=== PATIENT | male | born 1980 | race Hispanic/Latino ===

== ENCOUNTER 2020-02-15 04:20 | Inpatient (IN) | payer OTHER ==
[~2020-02-15] VITALS: Ht 162.6 cm; Wt 96.6 kg
[2020-02-15] MEDS ORDERED: ACETAMINOPHEN 325 MG TAB PO ONE ×2 (04:45→06:45)
[2020-02-15] MEDS ORDERED: CEFEPIME 2 GM/NS 0.9% 100 ML 100 ML IV ONE (04:45)
[2020-02-15] MEDS ORDERED: IBUPROFEN 600 MG TAB PO STA (05:05)
--- NOTE | 2020-02-15 05:13 | Emergency Department Note ---
History of Present Illnes History of Present Illness Chief Complaint: COVID PUI History of Present Illness This is a 40 year old male PRESENTS TO ED WITH FEVER, SOB AND DRY COUGH ONSET YESTERDAY; PT WAS SEEN AT [facility] YESTERDAY AND RX'D ANTIBIOTICS, DENIES BEING TESTED FOR COVID; PT REPORTS SOB WHILE LAYING FLAT; PT DENIES CP OR SOB AT THIS TIME; PT TACHYPNEIC WHEN SPEAKING; . Historian: Patient Arrival Mode: Car Onset (how long ago): day(s) (1) Location: chest Quality: sob, occasional pain withi inspiration Radiation: Reports non-radiation Severity: mild Onset quality: sudden Duration (how long): day(s) (1) Progression: worsening Chronicity: new Context: Reports recent illness Relieving factors: none Exacerbating factors: none Associated symptoms: Reports chest pain (with inspiration occasionally), Reports cough (non productive) Treatments prior to arrival: antipyretic (tylenol) Past Medical/Family History Physician Review I have reviewed the patient's past medical and family history. Any updates have been documented here. Past Medical History Recent Fever: Yes Clinical Suspicion of Infectio: Yes New/Unexplained Change in Ment: No Past Medical History: None Other Surgery: RT MINISCUS REPAIR Social History Smoking Cessation: Never Smoker Alcohol Use: None Any Illegal Drug Use: No Other Last Tetanus: UTD Review of Systems Review of Systems Constitutional: Reports chills, Reports fever EENTM: Reports no symptoms Cardiovascular: Reports no symptoms Respiratory: Reports as per HPI Gastrointestinal: Reports no symptoms Genitourinary: Reports no symptoms Musculoskeletal: Reports no symptoms Integumentary: Reports no symptoms Neurological: Reports no symptoms Psychological: Reports no symptoms Endocrine: Reports no symptoms Hematological/Lymphatic: Reports no symptoms Physical Exam Related Data Allergies: Coded Allergies: No Known Allergies (Unverified , 02/15/20) Triage Vital Signs Vital Signs Date Time Temp Pulse Resp B/P (MAP) Pulse Ox O2 Delivery O2 Flow Rate FiO2 02/15/20 04:22 101.4 115 32 150/77 96 Vital signs reviewed: Yes Physical Exam CONSTITUTIONAL Constitutional: Reports well-developed, Reports well-nourished HENT HENT: Reports normocephalic, Reports atraumatic, Reports oropharynx clear/moist, Reports nose normal HENT L/R: Reports left ext ear normal, Reports right ext ear normal EYES Eyes: Reports PERRL, Reports conjunctivae normal NECK Neck: Reports ROM normal PULMONARY Pulmonary: Reports effort normal, Reports breath sounds normal CARDIOVASCULAR Cardiovascular: Reports regular rhythm, Reports heart sounds normal, Reports capillary refill normal, Reports tachycardia (102) GASTROINTESTINAL Abdominal: Reports soft, Reports nontender, Reports bowel sounds normal GENITOURINARY Genitourinary: Reports exam deferred SKIN Skin: Reports warm, Reports dry MUSCULOSKELETAL Musculoskeletal: Reports ROM normal NEUROLOGICAL Neurological: Reports alert, Reports oriented x 3, Reports no gross motor or sensory deficits PSYCHOLOGICAL Psychological: Reports mood/affect normal, Reports judgement normal Results Laboratory Laboratory Laboratory Tests Test 02/15/20 04:52 02/15/20 04:45 02/15/20 04:30 White Blood Count 12.69 x10e3/uL (4.8-10.8) Red Blood Count 5.05 x10e6/uL (4.3-5.7) Hemoglobin 13.5 g/dL (14.0-18.0) Hematocrit 42.1 % (38.2-49.6) Mean Corpuscular Volume 83.4 fL (81-99) Mean Corpuscular Hemoglobin 26.7 pg (28-32) Mean Corpuscular Hemoglobin Concent 32.1 g/dL (31-35) Red Cell Distribution Width 13.5 % (11.7-14.4) Platelet Count 180 x10e3/uL (140-360) Neutrophils (%) (Auto) 88.5 % (38.7-80.0) Lymphocytes (%) (Auto) 8.8 % (18.0-39.1) Monocytes (%) (Auto) 1.7 % (4.4-11.3) Eosinophils (%) (Auto) 0.1 % (0.0-6.0) Basophils (%) (Auto) 0.2 % (0.0-1.0) Neutrophils # (Auto) 11.2 (2.1-6.9) Lymphocytes # (Auto) 1.1 (1.0-3.2) Monocytes # (Auto) 0.2 (0.2-0.8) Eosinophils # (Auto) 0.0 (0.0-0.4) Basophils # (Auto) 0.0 (0.0-0.1) Absolute Immature Granulocyte (auto 0.09 x10e3/uL (0-0.1) Prothrombin Time 12.3 seconds (11.9-14.5) Prothromb Time International Ratio 0.87 Activated Partial Thromboplast Time 37.6 seconds (23.8-35.5) D-Dimer Quantitative (PE/DVT) 497 ng/mL (0-400) Sodium Level 134 mmol/L (136-145) Potassium Level 4.2 mmol/L (3.5-5.1) Chloride Level 99 mmol/L (98-107) Carbon Dioxide Level 25 mmol/L (22-29) Anion Gap 14.2 mmol/L (8-16) Blood Urea Nitrogen 6 mg/dL (7-26) Creatinine 1.03 mg/dL (0.72-1.25) Estimat Glomerular Filtration Rate > 60 ML/MIN (60-) BUN/Creatinine Ratio 6 (6-25) Glucose Level 171 mg/dL (74-118) Lactic Acid Level 1.7 mmol/L (0.5-2.0) Calcium Level 9.2 mg/dL (8.4-10.2) Total Bilirubin 0.5 mg/dL (0.2-1.2) Aspartate Amino Transf (AST/SGOT) 37 IU/L (5-34) Alanine Aminotransferase (ALT/SGPT) 66 IU/L (0-55) Alkaline Phosphatase 75 IU/L (40-150) Creatine Kinase 453 IU/L (30-200) Creatine Kinase MB 0.80 ng/mL (0-5.0) Troponin I 0.044 ng/mL (0-0.300) Total Protein 7.5 g/dL (6.5-8.1) Albumin 3.4 g/dL (3.5-5.0) Globulin 4.1 g/dL (2.3-3.5) Albumin/Globulin Ratio 0.8 (0.8-2.0) Urine Color [place] (YELLOW) Urine Clarity Clear (CLEAR) Urine pH 5.5 (5 - 7) Urine Specific [place] >=1.030 (1.010-1.025) Urine Protein 2+ (NEGATIVE) Urine Glucose (UA) Negative (NEGATIVE) Urine Ketones Trace (NEGATIVE) Urine Blood Trace (NEGATIVE) Urine Nitrite Negative (NEGATIVE) Urine Bilirubin Negative (NEGATIVE) Urine Urobilinogen 1 mg/dL (0.2 - 1) Urine Leukocyte Esterase Negative (NEGATIVE) Lab results reviewed: Yes Imaging Imaging results reviewed: Yes Impressions Procedure: [id number] DX/CHEST SINGLE (PORTABLE) Exam Date: Exam Time: REPORT STATUS: Signed EXAMINATION: CHEST SINGLE (PORTABLE) INDICATION: ^fever,cough ^Y COMPARISON: None FINDINGS: AP view TUBES and LINES: None. LUNGS: Lungs are well inflated. Bilateral airspace opacities. PLEURA: No pleural effusion or pneumothorax. HEART AND MEDIASTINUM: The cardiomediastinal silhouette is unremarkable. BONES AND SOFT TISSUES: No acute osseous lesion. Soft tissues are unremarkable. UPPER ABDOMEN: No free air under the diaphragm. IMPRESSION: Bilateral airspace opacities, concerning for multifocal pneumonia. Procedures 12 Lead ECG Interpretation ECG Interpretation : ECG: ECG 1 Shorts Sifter: Interpreted by ED physician Date: Feb 15, 2020 Time: 04:37 Rhythm: sinus tachycardia Rate: tachycardia BPM: 104 QRS axis: right ST segments normal: Yes Other findings: no other findings Clinical Impression: normal ECG Assessment & Plan Medical Decision Making MDM Patient presents one-day history of fever and nonproductive cough aches chills. States seen at [facility] where they did vital signs checked his temperature prescribed him Motrin and steroids. Presents to ER because now he is feeling short of breath patient becomes tachypneic with speaking and becomes tachypneic when walking. sirs criteria on arrival temp greater than 100.9, rr greater than 20, heart rate greater than 90 -CBC, CMP, d-dimer, lactic acid, blood cultures, chest x-ray, EKG, cardiac enzymes, covid 19, ordered to eval for sepsis, pneumonia, myocardial infarction, Covid 19, electrolyte abnormality. Cefepime 2 g IV ordered. Motrin 600 mg by mouth ordered. Patient says chest x-ray shows multifocal pneumonia which is consistent with possible Covid 19. I spoke with Dr. should be Dr. Ventura and Dr. Jiang. Will patient to inpatient for pneumonia, Covid 19 test is pending Assessment & Plan Final Impression: (1) Multifocal pneumonia (2) Fever Last Vital Signs Date Time Temp Pulse Resp B/P (MAP) Pulse Ox O2 Delivery O2 Flow Rate FiO2 02/15/20 05:04 102 24 122/66 98 02/15/20 04:22 101.4 Medications in the ED Cefepime HCl 100 ml @ 200 mls/hr ONCE ONCE IV ; Start 02/15/20 at 04:45; Stop 02/15/20 at 05:14 Acetaminophen 975 mg ONCE ONCE PO ; Start 02/15/20 at 04:45; Stop 02/15/20 at 04:46; Status DC JESÚS DONG MD Feb 15, 2020 05:13
[2020-02-15 05:14] LABS: BASOPHILS % 0.2 % (0.0-1.0); EOSINOPHILS % 0.1 % (0.0-6.0); HEMATOCRIT 42.1 % (38.2-49.6); HEMOGLOBIN 13.5 g/dL (14.0-18.0); LYMPHOCYTES # (AUTO) 1.1 (1.0-3.2); LYMPHOCYTES % 8.8 % (18.0-39.1); MEAN CORPUSCULAR HEMOGLOBIN 26.7 pg (28-32); MEAN CORPUSCULAR HGB CONC 32.1 g/dL (31-35); MEAN CORPUSCULAR VOLUME 83.4 fL (81-99); MONOCYTES # (AUTO) 0.2 (0.2-0.8); MONOCYTES % 1.7 % (4.4-11.3); NEUTROPHILS # (AUTO) 11.2 (2.1-6.9); NEUTROPHILS % 88.5 % (38.7-80.0); PLATELET COUNT 180 x10e3/uL (140-360); RED BLOOD COUNT 5.05 x10e6/uL (4.3-5.7); RED CELL DISTRIBUTION WIDTH 13.5 % (11.7-14.4)
[2020-02-15 05:18] LABS: INR 0.87; PROTHROMBIN TIME 12.3 seconds (11.9-14.5)
[2020-02-15 05:19] LABS: PARTIAL THROMBOPLASTIN TIME 37.6 seconds (23.8-35.5)
[2020-02-15 05:29] LABS: ALANINE AMINOTRANSFERASE 66 IU/L (0-55); ALBUMIN 3.4 g/dL (3.5-5.0); ALBUMIN/GLOBULIN RATIO 0.8 (0.8-2.0); ALKALINE PHOSPHATASE 75 IU/L (40-150); ANION GAP 14.2 mmol/L (8-16); BLOOD UREA NITROGEN 6 mg/dL (7-26); BUN/CREATININE RATIO 6 (6-25); CALCIUM 9.2 mg/dL (8.4-10.2); CARBON DIOXIDE 25 mmol/L (22-29); CHLORIDE 99 mmol/L (98-107); CREATINE KINASE 453 IU/L (30-200); CREATININE, SERUM 1.03 mg/dL (0.72-1.25); EST GLOMERULAR FILTRATION RATE > 60 ML/MIN (60-); GLUCOSE 171 mg/dL (74-118); POTASSIUM 4.2 mmol/L (3.5-5.1); SODIUM 134 mmol/L (136-145)
--- NOTE | 2020-02-15 05:48 | Diagnostic Imaging Report ---
EXAMINATION: CHEST SINGLE (PORTABLE) INDICATION: ^fever,cough ^Y COMPARISON: None FINDINGS: AP view TUBES and LINES: None. LUNGS: Lungs are well inflated. Bilateral airspace opacities. PLEURA: No pleural effusion or pneumothorax. HEART AND MEDIASTINUM: The cardiomediastinal silhouette is unremarkable. BONES AND SOFT TISSUES: No acute osseous lesion. Soft tissues are unremarkable. UPPER ABDOMEN: No free air under the diaphragm. IMPRESSION: Bilateral airspace opacities, concerning for multifocal pneumonia. Signed by: Dr. Osbaldo Burns MD on 02/15/2020 5:45 AM
[2020-02-15 06:04] LABS: CLARITY,URINE CLEAR (CLEAR); COLOR,URINE ORANGE (YELLOW); LEUKOCYTE ESTERASE ,URINE NEGATIVE (NEGATIVE); NITRITE,URINE NEGATIVE (NEGATIVE); PROTEIN,URINE DIPSTICK 2+ (NEGATIVE)
[2020-02-15 06:05] LABS: BILIRUBIN,URINE NEGATIVE (NEGATIVE); KETONES,URINE TRACE (NEGATIVE); URINE UROBILINOGEN 1 mg/dL (0.2 - 1)
[2020-02-15] MEDS ORDERED: AZITHROMYCIN 500MG/SOD CHL 0.9% 250ML BAG IV SCH (06:45)
[2020-02-15] MEDS ORDERED: ALBUTEROL SULFATE HFA 8GM INHALATION AEROSOL INH PRN (06:45)
[2020-02-15] MEDS ORDERED: CEFTRIAXONE SOD 1 GRAM/0.9% SOD CHL 50ML BAG IV SCH (06:45)
--- OUTSIDE RECORDS SUMMARY | 2020-02-15 06:59 | XMS REPORT | Continuity of Care Document ---
Author Author [facility] t Organization [facility] Address [facility] [address] [place] [address] Phone Unavailable Care Team Providers Care Logistics Research Engineer Name Role Phone Jenny DONG Attphys Unavailable Problems This patient has no known problems. Allergies, Adverse Reactions, Alerts This patient has no known allergies or adverse reactions. Medications This patient has no known medications. Procedures This patient has no known procedures. Results Test Description Test Time Test Comments Results Result Comments Source CHEST SINGLE (PORTABLE) 2020-02-15 05:44:00 [facility] [address] [place] [id number] Patient Name: CHEYENNE DE LA CRUZ MR #: [id number] : 1980 Age/Sex: 40/M Req #: [id number] Adm Physician: Ordered by: JESÚS DONG MD Report #: [id number] Location: ER Room/Bed: Procedure: [id number] DX/CHEST SINGLE (PORTABLE) Exam Date: Exam Time: REPORT STATUS: Signed EXAMINATION: CHEST SINGLE (PORTABLE) INDICATION: fever,cough Y COMPARISON: None FINDINGS: AP view TUBES and LINES: None. LUNGS: Lungs are well inflated. Bilateral airspace opacities. PLEURA: No pleural effusion or pneumothorax. HEART AND MEDIASTINUM: The cardiomediastinal silhouette is unremarkable. BONES AND SOFT TISSUES: No acute osseous lesion. Soft tissues are unremarkable. UPPER ABDOMEN: No free air under the diaphragm. IMPRESSION: Bilateral airspace opacities, concerning for multifocal pneumonia. Signed by: Dr. Osbaldo Kim MD on 02/15/2020 5:45 AM Dictated By: OSBALDO KIM MD 4 Transcribed By: LY on 02/15/20544 COPY TO: JESÚS DONG MD
[2020-02-15 07:00] LABS: BACTERIA,URINE RARE /HPF; EPITHELIAL CELLS,URINE FEW /LPF
--- NOTE | 2020-02-15 07:19 | Diagnostic Imaging Report ---
EXAM: CT Chest WITH contrast (PE Protocol) INDICATION: ^PE PROTOCOL ^Y COMPARISON: Same day chest x-ray TECHNIQUE: Chest was scanned utilizing a multidetector helical scanner from the lung apex through the level of the diaphragm after administration of IV contrast. Thin section reconstructions were obtained with special concentration on the pulmonary arteries. Coronal and sagittal reformations were obtained. Dose modulation, iterative reconstruction, and/or weight based adjustment of the mA/kV was utilized to reduce the radiation dose to as low as reasonably achievable. Pulmonary embolism protocol was performed. IV CONTRAST: 100 mL of Omnipaque 370 COMPLICATIONS: None RADIATION DOSE: Total DLP: 509.93 mGy*cm Estimated effective dose: (DLP x 0.014 x size factor) mSv CTDIvol has been reviewed. It is below the limits set by the Radiation Protocol Committee (RPC). FINDINGS: LINES/ TUBES: None. LUNGS AND AIRWAYS: No filling defect is identified within the pulmonary arteries to the segmental level. Diffuse bilateral mostly peripheral groundglass and patchy airspace opacities. Airways are normal. PLEURA: The pleural spaces are clear. HEART AND MEDIASTINUM: The thyroid gland is normal. Enlarged mediastinal and bilateral hilar lymph nodes. For example 1.5 cm AP window or 0.9 cm right hilar lymph nodes. Calcified right hilar lymph nodes. The heart is normal in size.. There is no pericardial effusion. . Main pulmonary artery measures 2.6 cm in diameter. UPPER ABDOMEN: Unremarkable BONES: The visualized bony thorax is within normal limits. SOFT TISSUES: Unremarkable. IMPRESSION: No pulmonary emboli. Diffuse bilateral groundglass and patchy airspace opacities, representing multifocal atypical pneumonia. Mediastinal and hilar lymphadenopathy, likely reactive. Signed by: Dr. Osbaldo Burns MD on 02/15/2020 7:16 AM
--- NOTE | 2020-02-15 07:21 | NUR ---
PT REPORT GIVEN TO DAYSWIFT NURSE, Jace BUSCH LVN.
[2020-02-15] MEDS ORDERED: IOPAMIDOL 370 MG/ML 200 ML INFUS..BTL INJ ONE (07:26)
[2020-02-15] MEDS ORDERED: SODIUM CHLORIDE 0.9% 50ML 50 ML ONE (07:26)
[2020-02-15] MEDS ORDERED: ZOLPIDEM TARTRATE 5 MG TAB PO PRN (08:00)
[2020-02-15] MEDS: SODIUM CHLORIDE 0.9% 1000ML 1,000 ML IV SCH ×3 (08:18→18:14)
[2020-02-15] MEDS: ENOXAPARIN 30 MG/0.3 ML SYR SC SCH ×2 (08:18→21:34)
[2020-02-15] MEDS: CEFTRIAXONE SOD 1 GM/NS 50 ML 50 ML IV SCH (08:18)
[2020-02-15] MEDS: AZITHROMYCIN 500MG/NS 250 ML 250 ML IV SCH (08:18)
--- NOTE | 2020-02-15 09:18 | NUR ---
CONFIRMED COVID BY RAOUL IN LAB, NOTIFIED PRIMARY NURSE AND CHG.
--- NOTE | 2020-02-15 11:36 | NUR ---
RECEIVED REPORT FROM ER NURSE, CINTHIA. AWAITING PT'S ARRIVAL TO IMCU ROOM 178.
[2020-02-15 12:30] VITALS: BP 121/69
[2020-02-15 14:37] VITALS: BP 121/69
--- NOTE | 2020-02-15 14:48 | Consultation ---
DATE OF CONSULTATION: CHIEF COMPLAINT: Fever and pain with inspiration. HISTORY OF PRESENT ILLNESS: The patient is a 40-year-old man. He has no prior cardiac history and no prior pulmonary history. He notes some pain in his lower sternal area with inspiration for the past two or three days. He has noted fevers as well. He does have a mild cough. He also complains of irritation in the back of his throat. He denies any rhinorrhea. He is not having any nausea or vomiting. The patient went to [facility] yesterday. He received benzonatate and Motrin. He returns today because his symptoms are worse. PHYSICAL EXAMINATION: VITAL SIGNS: The T-max is 101.5. The pulse is 98. Saturation is 98% on 2 L. HEENT: Shows no facial swelling or erythema. The oropharynx is normal. LYMPHATIC: Shows no submandibular, cervical, or supraclavicular adenopathy. CARDIAC: Reveals regular rate and rhythm with normal S1, S2. LUNGS: Auscultation of lungs reveals a few crackles at the bases. There is no wheezing. ABDOMEN: Soft, nontender. There is no rebound or guarding. EXTREMITIES: Shows no leg edema or calf tenderness. NEUROLOGIC: Shows no focal abnormalities. ALLERGIES: NO KNOWN DRUG ALLERGIES. PAST SURGICAL HISTORY: The patient had a surgery on his leg 20 years ago. PAST MEDICAL HISTORY: No prior history of diabetes, hypertension, asthma, or heart disease. FAMILY HISTORY: Noncontributory. REVIEW OF SYSTEMS: The patient did have fevers. He denies headache. He has irritation in his throat. He notes some pain in his chest with deep inspiration. He is not having any productive cough. He is having a dry cough. He has some dyspnea. He has no abdominal pain. He has no nausea or vomiting. He does not complain of any rashes. LABORATORY DATA: White blood cell count is 12.6, hemoglobin is 13.5, and platelet count is 180. The BUN to creatinine ratio is 6 to 1.03. The sodium is 134. AST is 37 and ALT is 66. IMAGING DATA: CT of chest shows diffuse ground-glass opacities suggestive of viral pneumonia. IMPRESSION: 1. Viral pneumonia. 2. Possible COVID-19 infection. PLAN: 1. IV fluids. 2. Tylenol. 3. Zithromax. 4. Lovenox. 5. Oxygen. 6. Await COVID testing. MD CHRISTY Soler/ARNAV /[id number]
[2020-02-15] MEDS ORDERED: SUCCINYLCHOLINE CHLORIDE 20 MG/ML 10ML VIAL ONE (15:11)
[2020-02-15] MEDS ORDERED: ETOMIDATE 2 MG/ML 10 ML INJ IV ONE (15:11)
[2020-02-15] MEDS ORDERED: VECURONIUM BROMIDE FOR INJ 20 MG VIAL ONE (15:11)
[2020-02-15] MEDS ORDERED: WATER STERILE 10 ML VIAL ONE (15:11)
[2020-02-15] MEDS: GUAIFENESIN/CODEINE 10 ML CUP PO PRN (15:51)
[2020-02-15 16:00] VITALS: BP 137/84
--- NOTE | 2020-02-15 16:42 | NUR ---
H&P cc: sob HPI: 40yoM, PCP none, developed sob and cough. SOB worse at rest. Found to have multifocal PNA. Pt denies COVID19 exposure or sick family members. PMH: none Pshx: none Allergies; see emr Fh/SH; ; no cigs/illicits/eoth meds; see MAR ROS: no dizziness/confusion'/vision changes/leg pain/backpain/focal limb weakness/cp. v/s; revd PE tired appearing anicteric ns1s2 COARSE BS soft nt nd no e/t skin dry flat affect a&ox3; labs/meds revd A/P: 40yoM Sepsis- IV abx; IVF as needed Multifocal PNA- IV abx; COVID19 test Transaminitis- f/u repeat HYponatremia- mild; f/u Obesity- screen for DM BMI 34.3- as above Hyperglycemia- as above Prop: scd Dispo; IV abx; IVF; f/u COVID19 testing Stephen Jiang MD, PHD.
[2020-02-15 18:42] LABS: CREATINE KINASE MB 1.1 ng/mL (0-5.0)
[2020-02-15 19:02] LABS: CHOL/HDL RATIO 4.6 (3.9-4.7)
--- NOTE | 2020-02-15 19:34 | Consultation ---
DATE OF CONSULTATION: REASON FOR CONSULTATION: COVID-19. HISTORY OF PRESENT ILLNESS: This is a 40-year-old male with history of obesity, no other medical problem, comes in with one-day history of not feeling well. The patient who has fever, chills, cough, shortness of breath, but he is refusing to use the oxygen because he said he cannot breathe well, although his O2 saturation when he does not do that is in 90s, but he is breathing about 30-40 per minute. PAST MEDICAL HISTORY: Beside obesity, he denies any past medical history. PAST SURGICAL HISTORY: He denies any past surgical history. ALLERGIES: NKA. SOCIAL HISTORY: There is no smoking, drug abuse, or alcohol abuse. FAMILY HISTORY: Otherwise unremarkable. IMAGING DATA: His chest x-ray and CT chest showed diffuse bilateral ground-glass opacities. PHYSICAL EXAMINATION: GENERAL: Currently alert, oriented, does not seem to be in acute distress. VITAL SIGNS: Stable, currently afebrile, but has a temperature of 101.5. HEENT: He is not icteric. NECK: Supple. CHEST: Few crackles bilateral. COR: S1 and S2. No murmurs. ABDOMEN: Soft. LABORATORY DATA: Reviewed. IMPRESSION: COVID-19 present on admission, concerned about superimposed bacterial infection. Agree with azithromycin, Rocephin. Agree with Lovenox even though his O2 saturation is high but he is tachypneic, I recommend to use oxygen. He refused to use a nasal cannula, so I asked the respiratory therapist to give him the mask and see if he would like it MD CINDY Johnston/YULIYAL /[id number]
[2020-02-15 20:00] VITALS: BP 152/83
[2020-02-15 20:45] VITALS: BP 152/83
[2020-02-15] MEDS: ACETAMINOPHEN 325 MG TAB PO PRN (20:45)
--- NOTE | 2020-02-15 20:45 | NUR ---
PATIENT RESTING IN BED, VOICES SORE THROAT AND SHORTNESS OF BREATH. NASAL CANNULA IS INTACT AND PATENT AND RUNNING AT 3 LITERS, PHYSICIAN WAS CALLED AND CHLORASEPTIC WAS ORDERED FOR PATIENTS SORE THROAT. PATIENT RAN A FEVER OF 103 AND WAS MEDICATED ORDERED WITH TYLENOL. BED IS IN LOWEST POSITION, BOTH SIDE RAILS ARE UP, CALL LIGHT IS WITHIN EASY REACH, WILL CONTINUE TO MONITOR.
[2020-02-15] MEDS ORDERED: CHLORASEPTIC SPRAY 177 ML BTL MM PRN (21:30)
[2020-02-16] VITALS (12 sets, daily range): BP systolic 84–135; BP diastolic 51–86
--- NOTE | 2020-02-16 00:15 | NUR ---
PATIENT RAN ANOTHER FEVER OF 100.5, TYLENOL GIVEN ORDERED. PATIENT NOW SITTING IN RECLINER. CONTINUING TO MONITOR.
[2020-02-16] MEDS: ACETAMINOPHEN 325 MG TAB PO PRN (01:17)
[2020-02-16] MEDS: SODIUM CHLORIDE 0.9% 1000ML 1,000 ML IV SCH (01:59)
[2020-02-16] MEDS: GUAIFENESIN/CODEINE 10 ML CUP PO PRN ×2 (05:20→10:17)
[2020-02-16 05:56] LABS: BASOPHILS % 0.2 % (0.0-1.0); EOSINOPHILS % 0.1 % (0.0-6.0); HEMATOCRIT 40.3 % (38.2-49.6); HEMOGLOBIN 12.7 g/dL (14.0-18.0); LYMPHOCYTES # (AUTO) 1.4 (1.0-3.2); LYMPHOCYTES % 9.3 % (18.0-39.1); MEAN CORPUSCULAR HEMOGLOBIN 26.4 pg (28-32); MEAN CORPUSCULAR HGB CONC 31.5 g/dL (31-35); MEAN CORPUSCULAR VOLUME 83.8 fL (81-99); MONOCYTES # (AUTO) 0.2 (0.2-0.8); MONOCYTES % 1.1 % (4.4-11.3); NEUTROPHILS # (AUTO) 13.2 (2.1-6.9); NEUTROPHILS % 88.6 % (38.7-80.0); PLATELET COUNT 229 x10e3/uL (140-360); RED BLOOD COUNT 4.81 x10e6/uL (4.3-5.7); RED CELL DISTRIBUTION WIDTH 13.9 % (11.7-14.4)
[2020-02-16] MEDS: CEFTRIAXONE SOD 1 GM/NS 50 ML 50 ML IV SCH (06:35)
[2020-02-16 06:44] LABS: CREATINE KINASE MB 2.2 ng/mL (0-5.0)
--- NOTE | 2020-02-16 07:15 | NUR ---
Assumed patient care. Patient sitting up in chair at bedside. Respiration 24, with noted productive cough. Simple mask in place on 4L. Call light and personal belongings within reach.
[2020-02-16 07:23] LABS: ALANINE AMINOTRANSFERASE 68 IU/L (0-55); ALBUMIN 3.2 g/dL (3.5-5.0); ALBUMIN/GLOBULIN RATIO 0.7 (0.8-2.0); ALKALINE PHOSPHATASE 70 IU/L (40-150); ANION GAP 16.2 mmol/L (8-16); BLOOD UREA NITROGEN 7 mg/dL (7-26); BUN/CREATININE RATIO 8 (6-25); CALCIUM 9.3 mg/dL (8.4-10.2); CARBON DIOXIDE 24 mmol/L (22-29); CHLORIDE 101 mmol/L (98-107); EST GLOMERULAR FILTRATION RATE > 60 ML/MIN (60-); GLUCOSE 97 mg/dL (74-118); POTASSIUM 4.2 mmol/L (3.5-5.1); SODIUM 137 mmol/L (136-145)
[2020-02-16] MEDS: AZITHROMYCIN 500MG/NS 250 ML 250 ML IV SCH (08:26)
[2020-02-16] MEDS: ENOXAPARIN 30 MG/0.3 ML SYR SC SCH (08:27)
--- NOTE | 2020-02-16 10:15 | NUR ---
Dr. Jiang notified of respiratory distress. Patient states "it feels like my throat is closing." PRN albuterol given with no relief. O2 sats 81-85% on non-rebreather mask. Awaiting call back. Escalated to nurse motor vehicles supervisor.
--- NOTE | 2020-02-16 10:30 | NUR ---
Called Dr. Andi Ventura regarding respiratory distress with O2 sats of 81-85% on 6L O2 via non-rebreather mask. Ordered to discontinue IV fluids, insert large bore hole IV and initiate Vapotherm. Orders read back and verified. rate supervisor notified.
--- NOTE | 2020-02-16 11:05 | NUR ---
20G IV to right antecubital started. IV fluids discontinued per order. High flow nasal canula placed on patient at 15L oxygen.
--- NOTE | 2020-02-16 12:22 | Progress Note ---
DATE: SUBJECTIVE: The patient had more difficulty breathing this morning with decreased oxygen saturations. He was placed on high-flow nasal cannula. He then required a non-rebreather over the high-flow nasal cannula. He is now saturating 92%. His T-max was 103 yesterday. PHYSICAL EXAMINATION: VITAL SIGNS: The patient is afebrile. The blood pressure is 125/51 and heart rate is 106. The respiratory rate is normal. HEENT: Shows no facial swelling or erythema. CARDIAC: Reveals regular rate and rhythm with normal S1 and S2. LUNGS: Auscultation of lungs reveals crackles at the bases. There is no wheezing. ABDOMEN: Soft and nontender. There is no rebound or guarding. EXTREMITIES: Shows no leg edema or calf tenderness. There is no cyanosis or clubbing. SKIN: Shows no rashes. NEUROLOGICAL: Shows no focal abnormalities. LABORATORY DATA: White blood cell count is 14.8 and hemoglobin is 12.7. The platelet count is 229. BUN to creatinine ratio is normal. Other electrolytes are within normal limits. Albumin is 2.2. IMPRESSION: 1. Acute respiratory failure. 2. COVID-19 infection and viral pneumonia. PLAN: 1. Transfer the patient to intensive care unit. 2. Vapotherm. 3. Discuss remdesivir with Infectious Disease. 4. Continue current antibiotics. 5. Continue Lovenox. 6. Case discussed with nursing, Respiratory, Infectious Disease, and Internal Medicine. Greater than 35 minutes in direct critical care time. Andi Ventura MD [facility]/YULIYAL /[id number]
--- NOTE | 2020-02-16 12:44 | NUR ---
IM- progress note O/N see below ROS: no dizziness/confusion'/vision changes/leg pain/backpain/focal limb weakness/cp. v/s; revd PE tired appearing anicteric ns1s2 COARSE BS soft nt nd no e/t skin dry flat affect a&ox3; labs/meds revd A/P: 40yoM Sepsis- IV abx; IVF as needed Multifocal PNA- IV abx; COVID19 test Acute Resp failure- HiFlo Transaminitis- f/u repeat HYponatremia- mild; f/u Obesity- screen for DM BMI 34.3- as above Hyperglycemia- as above Prop: scd Dispo; IV abx; IVF; f/u COVID19 testing 6-13 COVID19 infection- supportive care; Acute Respiratory Failure- HiFlo. Low threshold for intubation. Intubated; moved to ICU; cct>35mins. Stephen Jiang MD, PHD.
--- NOTE | 2020-02-16 13:30 | NUR ---
Called report to [facility]OZ[facility]. Patient to be transferred to ICU-190 via bed.
[2020-02-16] MEDS ORDERED: DEXMEDETOMIDINE 200MCG/NS 50ML 50 ML IV PRN (14:00)
[2020-02-16] MEDS ORDERED: DEXMEDETOMIDINE 200MCG/NS 50ML 50 ML IV ONE (14:18)
[2020-02-16] MEDS ORDERED: MIDAZOLAM HCL 2 MG/2 ML VIAL ONE ×2 (14:36→14:45)
[2020-02-16] MEDS: PROPOFOL IV EMULSION 10 MG/ML 50 ML VIAL IV SCH ×4 (14:50→22:45)
[2020-02-16] MEDS: MIDAZOLAM HCL 2 MG/2 ML VIAL IV NR (14:51)
[2020-02-16] MEDS ORDERED: MIDAZOLAM HCL 50 MG in SODIUM CHLORIDE 0.9% 100 ML 90 ML IV PRN (15:00)
[2020-02-16] MEDS ORDERED: MIDAZOLAM HCL 5MG/ML 10ML VIAL 100 ML IV PRN (15:15)
[2020-02-16] MEDS ORDERED: REMDESIVIR 200 MG IV NR (16:00)
[2020-02-16] MEDS: ROCURONIUM BROMIDE 250 MG in SODIUM CHLORIDE 0.9% 250ML 225 ML IV SCH ×2 (16:39→22:45)
--- NOTE | 2020-02-16 16:40 | Diagnostic Imaging Report ---
EXAM: Abdomen 1 Views INDICATION: ^NGT PLACEMENT ^[id number] ^1515 COMPARISON: None FINDINGS: Lines/tubes: Distal NG/NG tube overlying the distal gastric body. Mild amount of stool in the colon. No dilated loops of small bowel. No renal calculi. No abnormal soft tissue masses. Mild degenerative changes in the lumbar spine and pelvis. IMPRESSION: Distal NG/NG tube overlying the distal gastric body. Signed by: Dr. Lyric Merino M.D. on 02/16/2020 4:37 PM
--- NOTE | 2020-02-16 16:42 | Diagnostic Imaging Report ---
EXAMINATION: CHEST SINGLE (PORTABLE) INDICATION: ^INTUBATION ^[id number] ^1515 COMPARISON: CT chest 02/15/2020 and chest radiograph 02/15/2020 FINDINGS: AP view TUBES and LINES: Interval intubation with endotracheal tube tip overlying the mid trachea, 4.6 cm above the judy. New infradiaphragmatic NG/OG tube overlying the stomach. LUNGS: Lungs are well inflated. Worsening bilateral consolidation, left greater than right. PLEURA: No pleural effusion or pneumothorax. HEART AND MEDIASTINUM: The cardiomediastinal silhouette is unremarkable.. BONES AND SOFT TISSUES: No acute osseous lesion. Soft tissues are unremarkable. UPPER ABDOMEN: No free air under the diaphragm. IMPRESSION: Endotracheal and NG/OG tube in adequate position. Worsening bilateral multifocal pneumonia. Signed by: Dr. Lyric Merino M.D. on 02/16/2020 4:39 PM
--- NOTE | 2020-02-16 17:49 | NUR ---
RECVD PT @[address] WORKMAN AT BEDSIDE. PT HYPOXIC DISCUSSED WITH PT NEED TO INTUBATE. INTUBATED, NOW SEDATED. NOTIFIED IN [place] OF ALL UPDATED AND TREATMENT. PT VERBALIZES CONSENT OF CURRENT CARE AND MEDICATIONS. SHE ALSO REQUESTED THAT UPDATES BE GIVEN TO PASTORS [facility] [place].
[2020-02-16 17:52] LABS: ABG HCO3 27 mmol/L (22-26); ABG PCO2 47 mmHg (35-45); ABG PH 7.37 (7.35-7.45); ABG PO2 78 mmHg (80-105)
--- NOTE | 2020-02-16 20:05 | Progress Note ---
DATE: Mr. Mckeon today became worse, had to be transferred to the intensive care unit. He is intubated. I called his . Explained to her the situation. The patient currently is intubated. We also explained to the that since he is acutely worse, he meets the criteria for remdesivir, which is an investigational drug. It is not approved by FDA yet. It is approved only for emergency use in certain patients. She could refuse, but she did agree. They discussed all the medication, went over the point, reviewed with her the fact sheet about remdesivir through a portable sawmill operator. She agreed to all that. We will start the process, 200 mg IV piggyback and then 100 daily, total of 5 days. MD CINDY Johnston/ARNAV /[id number]
--- NOTE | 2020-02-16 20:41 | NUR ---
rotational speciality bed ordered as requested Confirmation #[id number] for Size Garcia.
[2020-02-16] MEDS ORDERED: ENOXAPARIN 30 MG/0.3 ML SYR SC SCH (21:00)
--- NOTE | 2020-02-16 21:46 | Operative Report ---
DATE OF PROCEDURE: SURGEON: Andi Ventura MD PROCEDURE: Endotracheal intubation. PREOPERATIVE DIAGNOSIS: Respiratory failure. POSTOPERATIVE DIAGNOSIS: Respiratory failure. MEDICATIONS: Etomidate 20 mg IV and succinylcholine 100 mg. CONSENT: Consent was obtained from the patient. DESCRIPTION OF PROCEDURE: The patient was placed in a supine position. He was saturating poorly prior to the procedure. An Ambu bag was used to try and ventilate the patient, but he continued to have poor saturations. A 4-0 MAC blade was used with a GlideScope to visualize glottis. The glottis was easily visualized and an 8.0 tube was passed on the first attempt. There were equal breath sounds bilaterally. There was good CO2 return. COMPLICATIONS: None. ESTIMATED BLOOD LOSS: None. Andi Ventura MD [facility]/MODL /[id number]
--- NOTE | 2020-02-16 21:54 | Diagnostic Imaging Report ---
EXAMINATION: CHEST XRAY LINE PLACEMENT INDICATION: ^PICC LINE PLACEMENT ^20200216 ^2114 ^Y COMPARISON: Same day at 1525 hours FINDINGS: AP view TUBES and LINES: Stable endotracheal and enteric tubes. New left PICC in place with tip projecting over right atrium. LUNGS: Lungs are well inflated. Diffuse bilateral airspace opacities. PLEURA: No significant pleural effusion or pneumothorax. HEART AND MEDIASTINUM: The cardiomediastinal silhouette is unremarkable. BONES AND SOFT TISSUES: No acute osseous lesion. Soft tissues are unremarkable. UPPER ABDOMEN: No free air under the diaphragm. IMPRESSION: New left PICC in place with tip projecting over right atrium. No visible pneumothorax. Signed by: Dr. Osbaldo Burns MD on 02/16/2020 9:51 PM
[2020-02-16] MEDS: ENOXAPARIN SOD INJ 40 MG/0.4 ML SYR SC SCH (22:16)
[2020-02-16] MEDS ORDERED: SODIUM CHLORIDE 0.9% 1000ML 1,000 ML IV ONE (23:15)
--- NOTE | 2020-02-16 23:45 | NUR ---
DR Jenny WORKMAN AT BEDSIDE. FIO2 DECREASED TO 90%, ROCURONIUM DRIP TURNED OFF AT THIS TIME. URINE OUTPUT DECREASED OVER PAST 2 HOURS, BLADDER SCAN SHOW 19ML, IVF INITIATED PER ORDERS
[2020-02-17] VITALS (23 sets, daily range): BP systolic 81–106; BP diastolic 56–77
--- NOTE | 2020-02-17 00:20 | Diagnostic Imaging Report ---
EXAMINATION: CHEST XRAY LINE PLACEMENT INDICATION: ^REPOSITIONING OF PICC LINE ^20200216 ^2315 ^Y COMPARISON: Same day at 2114 hours FINDINGS: AP view TUBES and LINES: Stable endotracheal and enteric tubes. Left PICC in place with tip projecting over cavoatrial junction. LUNGS: Low lung volumes. Diffuse bilateral airspace opacities. PLEURA: No significant pleural effusion or pneumothorax. HEART AND MEDIASTINUM: The cardiomediastinal silhouette is unremarkable. BONES AND SOFT TISSUES: No acute osseous lesion. Soft tissues are unremarkable. UPPER ABDOMEN: No free air under the diaphragm. IMPRESSION: Left PICC tip projects over cavoatrial junction on current exam. Signed by: Dr. Osbaldo Burns MD on 02/17/2020 12:16 AM
[2020-02-17] MEDS: MIDAZOLAM HCL 2 MG/2 ML VIAL IV NR ×2 (02:29→12:38)
[2020-02-17] MEDS: PROPOFOL IV EMULSION 10 MG/ML 50 ML VIAL IV SCH ×5 (02:29→22:40)
--- NOTE | 2020-02-17 05:14 | NUR ---
IM- progress note O/N see below ROS: no dizziness/confusion'/vision changes/leg pain/backpain/focal limb weakness/cp. v/s; revd PE tired appearing anicteric ns1s2 COARSE BS soft nt nd no e/t skin dry flat affect a&ox3; labs/meds revd A/P: 40yoM Sepsis- IV abx; IVF as needed Multifocal PNA- IV abx; COVID19 test Acute Resp failure- HiFlo Transaminitis- f/u repeat HYponatremia- mild; f/u Obesity- screen for DM BMI 34.3- as above Hyperglycemia- as above Prop: scd Dispo; IV abx; IVF; f/u COVID19 testing 02-15 COVID19 infection- supportive care; Acute Respiratory Failure- HiFlo. Low threshold for intubation. Intubated; moved to ICU; cct>35mins. 6 remains intubated; high PEEP; appears more stable; rec'd fluids overnight for hypotension; no pressors started; does have Sepsis. cct>35mins Stephen Jiang MD, PHD.
[2020-02-17 05:46] LABS: BASOPHILS % 0.1 % (0.0-1.0); EOSINOPHILS % 0.1 % (0.0-6.0); HEMATOCRIT 34.4 % (38.2-49.6); HEMOGLOBIN 10.6 g/dL (14.0-18.0); LYMPHOCYTES # (AUTO) 1.2 (1.0-3.2); LYMPHOCYTES % 12.3 % (18.0-39.1); MEAN CORPUSCULAR HEMOGLOBIN 26.5 pg (28-32); MEAN CORPUSCULAR HGB CONC 30.8 g/dL (31-35); MONOCYTES # (AUTO) 0.3 (0.2-0.8); MONOCYTES % 2.8 % (4.4-11.3); NEUTROPHILS # (AUTO) 8.2 (2.1-6.9); NEUTROPHILS % 83.6 % (38.7-80.0); PLATELET COUNT 228 x10e3/uL (140-360); RED CELL DISTRIBUTION WIDTH 14.3 % (11.7-14.4)
--- NOTE | 2020-02-17 06:01 | Diagnostic Imaging Report ---
EXAMINATION: CHEST SINGLE (PORTABLE) INDICATION: ^Viral pneumonia ^[id number] ^0500 COMPARISON: 02/16/2020 at 2324 hours FINDINGS: AP view TUBES and LINES: Stable endotracheal tube, nasogastric tube, and left PICC. LUNGS: Low lung volumes. Diffuse bilateral airspace opacities. PLEURA: No significant pleural effusion or pneumothorax. HEART AND MEDIASTINUM: The cardiomediastinal silhouette is enlarged, accentuated by low lung volumes. BONES AND SOFT TISSUES: No acute osseous lesion. Soft tissues are unremarkable. UPPER ABDOMEN: No free air under the diaphragm. IMPRESSION: No significant internal change from prior exam. Signed by: Dr. Osbaldo Burns MD on 02/17/2020 5:58 AM
[2020-02-17 06:16] LABS: ALANINE AMINOTRANSFERASE 51 IU/L (0-55); ALBUMIN 2.4 g/dL (3.5-5.0); ALBUMIN/GLOBULIN RATIO 0.6 (0.8-2.0); ALKALINE PHOSPHATASE 57 IU/L (40-150); ANION GAP 14.9 mmol/L (8-16); BLOOD UREA NITROGEN 14 mg/dL (7-26); BUN/CREATININE RATIO 16 (6-25); CALCIUM 7.9 mg/dL (8.4-10.2); CARBON DIOXIDE 24 mmol/L (22-29); CHLORIDE 99 mmol/L (98-107); CREATININE, SERUM 0.87 mg/dL (0.72-1.25); EST GLOMERULAR FILTRATION RATE > 60 ML/MIN (60-); GLUCOSE 103 mg/dL (74-118); POTASSIUM 3.9 mmol/L (3.5-5.1); SODIUM 134 mmol/L (136-145)
[2020-02-17] MEDS ORDERED: SODIUM CHLORIDE 0.9% 1000ML 1,000 ML ONE (07:57)
[2020-02-17] MEDS: CEFTRIAXONE SOD 1 GM/NS 50 ML 50 ML IV SCH (08:22)
[2020-02-17] MEDS: AZITHROMYCIN 500MG/NS 250 ML 250 ML IV SCH (08:22)
[2020-02-17] MEDS: ENOXAPARIN SOD INJ 40 MG/0.4 ML SYR SC SCH ×2 (08:23→22:15)
[2020-02-17 09:54] LABS: BAND NEUTROPHILS % (MANUAL) 1 %; LYMPHOCYTES % (MANUAL) 10 % (19-48); MONOCYTES % (MANUAL) 2 % (3.4-9.0); NEUTROPHILS % (MANUAL) 87 % (40-74)
--- NOTE | 2020-02-17 10:42 | Progress Note ---
DATE: SUBJECTIVE: The patient was intubated yesterday. He remains on a PRVC mode of ventilation at a rate of 30 with a tidal volume of 380. His PEEP is set at 16, and his FiO2 is at 65%. He remains on Versed as well as propofol. He is receiving enteral feedings as well as Lovenox. The patient was started on remdesivir yesterday. PHYSICAL EXAMINATION: VITAL SIGNS: The blood pressure is 96/61 and the pulse is 86. The saturation is 100%. He is on a PRVC at a rate of 30 with a tidal volume of 380 and FiO2 of 65%. His PEEP is set at 16. HEENT: No facial swelling or erythema. He has an oral endotracheal tube in place. He has a PICC line. CARDIAC: Regular rate and rhythm with normal S1 and S2. LUNGS: Auscultation of lungs reveals crackles at the bases. There is no wheezing. ABDOMEN: Soft, nontender. There is no rebound or guarding. EXTREMITIES: No leg edema or calf tenderness. There is no cyanosis or clubbing. SKIN: No rashes. NEUROLOGICAL: The patient to be sedated. LABORATORY DATA: BUN to creatinine ratio is 14 to 0.87. The potassium is 3.9. The sodium is 134. Albumin is 2.4. White blood cell count is 9.7, hemoglobin is 10.6, and platelet count is 288. IMAGING DATA: Chest x-ray shows bilateral infiltrates. IMPRESSION: 1. Acute respiratory failure. 2. Viral pneumonia and coronavirus disease-19 infection. 3. Hypoalbuminemia. 4. Anemia. 5. Possible history of obstructive sleep apnea. PLAN: 1. Repeat ABG. 2. Adjust ventilator settings as tolerated. 3. Continue remdesivir. 4. Continue enteral feedings. 5. Specialty bed to prevent decubitus ulcerations. 6. Deep venous thrombosis prophylaxis. 7. Case discussed with maintenance mechanic 2nd shift nursing, dayshift nursing, Respiratory, , Infectious Disease, and administration. Greater than 35 minutes in direct critical care time. Andi Ventura MD [facility]/MODL /[id number]
--- NOTE | 2020-02-17 11:58 | Progress Note ---
DATE: SUBJECTIVE: The patient is seen and evaluated. Available labs and notes reviewed. The patient is transferred to ICU room #190 and currently orally intubated. REVIEW OF SYSTEMS: Unable to obtain review of systems secondary to the patient's oral intubation. The patient is sedated, however, no pressors. PHYSICAL EXAMINATION: VITAL SIGNS: Temperature 99.2. Fever overall improved since admission. Pulse 89, respiration oral intubation with blood pressure of 96/61. GENERAL: Comfortable in bed, orally intubated, sedated without pressors. CV: S1 and S2. CHEST: Equal expansion. Coarse. ABDOMEN: Soft, obese, and nontender. EXTREMITIES: Some edema trace. MEDICATIONS: Medication list reviewed. The patient is on azithromycin, Rocephin, and remdesivir. LABORATORY STUDIES: White count 9.77, improved from 14.84, hemoglobin 10.6, and platelet 228. Sodium 134, potassium 3.9, and creatinine 0.87. Serology; coronavirus was positive on 02/15/2020. Blood culture, negative 48 hours from 02/15/2020. IMAGING: Chest x-ray from today showed no significant interval change from prior exam. Lungs with low lung volumes with diffuse bilateral airspace opacities. ASSESSMENT AND PLAN: 1. COVID-19 positive on admission on 02/15/2020. 2. Pneumonia. 3. Worsening of shortness of breath. 4. Leukocytosis, resolved. 5. Fever, improved. 6. Chest x-ray, no significant change. 7. Respiratory failure. Oral intubation. 8. Continue with antibiotics as mentioned above. 9. LFTs improved. Guarded prognosis. Please refer to chart for more information. Discussed with the nurse as well. Dictated by Miles Hutson PA-C (Al) Luz Elena Horne MD /MODL /[id number]
[2020-02-17] MEDS ORDERED: REMDESIVIR 100 MG IV SCH (14:00)
[2020-02-17 15:36] LABS: ABG HCO3 29 mmol/L (22-26); ABG PCO2 39 mmHg (35-45); ABG PH 7.48 (7.35-7.45); ABG PO2 75 mmHg (80-105)
[2020-02-17] MEDS ORDERED: HYDROXYZINE HCL 25 MG TAB ONE (17:13)
[2020-02-17] MEDS: SODIUM CHLORIDE 0.9% 100 ML 100 ML IV SCH (17:33)
[2020-02-17] MEDS: ACETAMINOPHEN 325 MG TAB PO PRN (19:19)
[2020-02-17] MEDS ORDERED: ROCURONIUM BROMIDE 250 MG in SODIUM CHLORIDE 0.9% 250ML 225 ML IV SCH (20:45)
[2020-02-17] MEDS: MIDAZOLAM HCL 5MG/ML 10ML VIAL 100 ML IV PRN (23:10)
[2020-02-17] MEDS: ROCURONIUM BROMIDE 250 MG in SODIUM CHLORIDE 0.9% 250ML 225 ML IV PRN (23:40)
[2020-02-18] VITALS (25 sets, daily range): BP systolic 81–120; BP diastolic 51–79
[2020-02-18] MEDS: PROPOFOL IV EMULSION 10 MG/ML 50 ML VIAL IV SCH ×3 (01:10→11:23)
--- NOTE | 2020-02-18 05:38 | NUR ---
IM- progress note O/N see below ROS: no dizziness/confusion'/vision changes/leg pain/backpain/focal limb weakness/cp. v/s; revd PE tired appearing anicteric ns1s2 COARSE BS soft nt nd no e/t skin dry flat affect a&ox3; labs/meds revd A/P: 40yoM Sepsis- IV abx; IVF as needed Multifocal PNA- IV abx; COVID19 test Acute Resp failure- HiFlo Transaminitis- f/u repeat HYponatremia- mild; f/u Obesity- screen for DM BMI 34.3- as above Hyperglycemia- as above Prop: scd Dispo; IV abx; IVF; f/u COVID19 testing 02-15 COVID19 infection- supportive care; Acute Respiratory Failure- HiFlo. Low threshold for intubation. Intubated; moved to ICU; cct>35mins. 6-14 remains intubated; high PEEP; appears more stable; rec'd fluids overnight for hypotension; no pressors started; does have Sepsis. cct>35mins 15 remains vented; PEEP and O2 needs falling; cont care; Stephen Jiang MD, PHD.
[2020-02-18 06:02] LABS: HEMATOCRIT 33.6 % (38.2-49.6); HEMOGLOBIN 10.7 g/dL (14.0-18.0); MEAN CORPUSCULAR HEMOGLOBIN 27.6 pg (28-32); MEAN CORPUSCULAR HGB CONC 31.8 g/dL (31-35); MEAN CORPUSCULAR VOLUME 86.8 fL (81-99); PLATELET COUNT 219 x10e3/uL (140-360); RED BLOOD COUNT 3.87 x10e6/uL (4.3-5.7); RED CELL DISTRIBUTION WIDTH 14.6 % (11.7-14.4)
[2020-02-18 06:15] LABS: PARTIAL THROMBOPLASTIN TIME 30.3 seconds (23.8-35.5)
[2020-02-18] MEDS: ROCURONIUM BROMIDE 250 MG in SODIUM CHLORIDE 0.9% 250ML 225 ML IV PRN ×2 (06:35→11:44)
--- NOTE | 2020-02-18 06:38 | Diagnostic Imaging Report ---
EXAM: Abdomen 1 View INDICATION: ^Distended Abdomen ^Y COMPARISON: Abdominal x-ray dated 02/16/2020 FINDINGS: Enteric tube in place with tip projecting over the expected location of the second portion of duodenum. Nonobstructive bowel gas pattern. No signs of pneumoperitoneum. Resolved previously seen mild gaseous distention of small bowel loops. No acute osseous abnormality. IMPRESSION: Nonobstructive bowel gas pattern. Signed by: Dr. Osbaldo Burns MD on 02/18/2020 6:35 AM
[2020-02-18 06:40] LABS: ALANINE AMINOTRANSFERASE 62 IU/L (0-55); ALBUMIN 2.2 g/dL (3.5-5.0); ALBUMIN/GLOBULIN RATIO 0.6 (0.8-2.0); ALKALINE PHOSPHATASE 77 IU/L (40-150); ANION GAP 12.1 mmol/L (8-16); BLOOD UREA NITROGEN 13 mg/dL (7-26); BUN/CREATININE RATIO 17 (6-25); CALCIUM 7.9 mg/dL (8.4-10.2); CARBON DIOXIDE 26 mmol/L (22-29); CHLORIDE 104 mmol/L (98-107); CREATININE, SERUM 0.76 mg/dL (0.72-1.25); EST GLOMERULAR FILTRATION RATE > 60 ML/MIN (60-); GLUCOSE 94 mg/dL (74-118); POTASSIUM 4.1 mmol/L (3.5-5.1); SODIUM 138 mmol/L (136-145)
--- NOTE | 2020-02-18 06:41 | Diagnostic Imaging Report ---
EXAMINATION: CHEST SINGLE (PORTABLE) INDICATION: ^resp failure COMPARISON: 02/17/2020 FINDINGS: AP view TUBES and LINES: Stable endotracheal and enteric tubes. Left PICC is again seen with tip extending to the right brachiocephalic vein on current exam. LUNGS: Lungs are well inflated. Diffuse bilateral airspace opacities. PLEURA: No significant pleural effusion or pneumothorax. HEART AND MEDIASTINUM: The cardiomediastinal silhouette is unremarkable. BONES AND SOFT TISSUES: No acute osseous lesion. Soft tissues are unremarkable. UPPER ABDOMEN: No free air under the diaphragm. IMPRESSION: Again seen diffuse bilateral airspace opacities, representing multifocal pneumonia. Signed by: Dr. Osbaldo Burns MD on 02/18/2020 6:37 AM
[2020-02-18] MEDS: MIDAZOLAM HCL 5MG/ML 10ML VIAL 100 ML IV PRN ×3 (06:45→20:33)
[2020-02-18] MEDS: CEFTRIAXONE SOD 1 GM/NS 50 ML 50 ML IV SCH (06:50)
[2020-02-18] MEDS ORDERED: SODIUM CHLORIDE 0.9% 250ML 250 ML ONE (06:52)
[2020-02-18 06:54] LABS: ALBUMIN 2.2 g/dL (3.5-5.0); BILIRUBIN,DIRECT 0.3 mg/dL (0.0-0.5); MAGNESIUM 2.3 MG/DL (1.3-2.1); PHOSPHORUS 3.4 MG/DL (2.3-4.7)
[2020-02-18 07:03] LABS: INR 0.87; PROTHROMBIN TIME 12.3 seconds (11.9-14.5)
[2020-02-18] MEDS: ENOXAPARIN SOD INJ 40 MG/0.4 ML SYR SC SCH ×2 (08:17→22:45)
[2020-02-18] MEDS: AZITHROMYCIN 500MG/NS 250 ML 250 ML IV SCH (08:17)
[2020-02-18 09:08] LABS: ANISOCYTOSIS SLIGHT; LYMPHOCYTES % (MANUAL) 6 % (19-48); MONOCYTES % (MANUAL) 3 % (3.4-9.0); MYELOCYTES % (MANUAL) 1 % (0-0); NEUTROPHILS % (MANUAL) 90 % (40-74); PLATELET ESTIMATE ADEQUATE; PLATELET MORPHOLOGY COMMENT NORMAL; RBC MORPHOLOGY COMMENT NORMAL
[2020-02-18] MEDS: METOCLOPRAMIDE HCL 10 MG/2ML VIAL IV SCH ×2 (11:24→18:25)
[2020-02-18 14:37] LABS: ABG HCO3 30 mmol/L (22-26); ABG PCO2 47 mmHg (35-45); ABG PH 7.41 (7.35-7.45); ABG PO2 92 mmHg (80-105)
[2020-02-18] MEDS: REMDESIVIR IV SCH (14:38)
[2020-02-18] MEDS: SODIUM CHLORIDE 0.9% 100 ML 100 ML IV SCH (14:38)
[2020-02-18] MEDS: NS 0.9% IV SCH (14:38)
[2020-02-18] MEDS ORDERED: FENTANYL 2000MCG/NS 250 250 ML ONE (15:19)
--- NOTE | 2020-02-18 15:19 | Progress Note ---
DATE: SUBJECTIVE: The patient is sedated on Versed and fentanyl. He remains on a PRVC mode of ventilation. He is saturating 100%. PHYSICAL EXAMINATION: VITAL SIGNS: The blood pressure is 120/77. He is on a PRVC mode of ventilation at a rate of 30 with a tidal volume of 380 mL. His PEEP is set at 14. He is saturating 100% on 60% FiO2. HEENT: Shows no facial swelling or erythema. There is an oral endotracheal tube in place. He has a PICC line. CARDIAC: Reveals regular rate and rhythm with normal S1 and S2. LUNGS: Auscultation of lungs reveals rhonchorous breath sounds bilaterally. There is no wheezing. ABDOMEN: Soft and nontender. There is no rebound or guarding. EXTREMITIES: Shows no leg edema or calf tenderness. There is no cyanosis or clubbing. SKIN: Shows no rashes. NEUROLOGICAL: Shows no focal abnormalities. LABORATORY DATA: White blood cell count is 8.7 and the hemoglobin is 10.7. The platelet count is 219. The BUN to creatinine ratio is 13 to 0.76 and the magnesium is 2.3. The albumin is 2.2. AST is 84 and the ALT is 63. RADIOGRAPHIC DATA: Chest x-ray shows diffuse bilateral airspace opacities. IMPRESSION: 1. Acute respiratory failure. 2. Viral pneumonia and COVID-19 infection. 3. Anemia. 4. Hypoalbuminemia. PLAN: 1. Continue to adjust ventilator as tolerated. 2. Continue remdesivir. 3. Continue enteral feedings. 4. Specialty bed to prevent decubitus ulcers. 5. DVT prophylaxis. 6. Case discussed with nursing, Respiratory, Infectious Disease, , and administration. Greater than 35 minutes in direct critical care time. Andi Ventura MD [facility]/MODL /[id number]
[2020-02-18] MEDS: FENTANYL CITRATE INJ 2,000 MCG in SODIUM CHLORIDE 0.9% 250ML 210 ML IV PRN (15:27)
--- NOTE | 2020-02-18 16:12 | NUR ---
Nutrition Intervention Note RD Recommendation(s) for Physician: -Recommend modifying formula to Vital High Protein @ goal rate of 55 mL/hr (provides 1320 kcal, 116 g protein, and 1104 mL water) -Propofol provides an additional 90 kcal -Fluid management per MD Plan of Care: RD following, monitoring for tolerance and adequacy, tube feed recommendation Nutrition reason for involvement: enteral nutrition RD Assessment (02/18/20) Pt is a 40 year old male admitted with fever and multifocal pneumonia. Pt is COVID-19+ and is currently intubated. Pt was started on tube feeding. Recommendations provided. RN reports pt is currently receiving 3.4 mL/hr of propofol which provides 90 kcal. There are no previous weights in chart. Will continue to monitor. Principal Problems/Diagnoses: fever and multifocal pneumonia PMH: obesity GI: round, firm, distended Skin: intact Labs: (02/17) Na 138, BUN 13, Cr 0.76, Glu 94, HgbA1c 6.0, Ca 7.9, AST 81. ALT 62 Meds: Reglan, propofol, antibiotics Ht: 64 inches Wt: 218 lbs BMI: 37.4 kg/m2 IBW: 130 lbs Malnutrition Evaluation (02/18/20) Unable to assess. Will re-evaluate at follow-up as appropriate. Nutrition Prescription (Diet Order): Glucerna 1.2 @ 30 mL/hr (provides 864 kcal and 43 g protein) Estimated Nutritional Needs: 1116-4906 calories/day (22-25 kcal/kg IBW) 89-118 g protein/day (1.5-2 g pro/kg IBW) Diet Adequacy: Not meeting calorie needs, Not meeting protein needs Tolerance: Tolerance pending Diet Education Needs Assessment: Diet education not indicated, patient on temporary/transition diet. Nutrition Care Level: moderate Nutrition Diagnosis: Inadequate oral intake related to respiratory failure/mechanical ventilation as evidenced by need for enteral nutrition Goal: Patient will meet 75-100% of estimated needs by follow up Progress: N/A Interventions: -Composition, Rate, Route, IVF, Recommended Modifications, Collaboration with other providers Monitoring/Evaluation: -Total energy intake, Total protein intake, Formula/Solution, Prescription medication, Weight change Signed: Ivelisse Marquez, RD, LD
--- NOTE | 2020-02-18 17:59 | Progress Note ---
DATE: SUBJECTIVE: Mr. Mckeon remains in intensive care unit. OBJECTIVE: VITAL SIGNS: Stable, running temperature 100.5, it was 60% early this morning, but now it is down to 30%. The patient is intubated, sedated. His saturation is 100%. HEENT: Normocephalic. NECK: Supple. CHEST: Crackles bilateral coarse. COR: S1, S2. No S3, S4, or murmur. ABDOMEN: Soft. IMPRESSION: 1. Respiratory failure. 2. Coronavirus disease-19. 3. Community-acquired pneumonia. Continue supportive care, on remdesivir. Continue antibiotic as ordered, finish 5 days. Seems to be getting better. Discussed with the medical team. We will follow. MD CINDY Johnston/ARNAV /[id number]
[2020-02-18] MEDS ORDERED: ALBUMIN 25% 25GM 100ML 0.25 GM/ML BTL IV NR (20:00)
[2020-02-18 22:29] LABS: ABG HCO3 28 mmol/L (22-26); ABG PCO2 46 mmHg (35-45); ABG PO2 80 mmHg (80-105)
[2020-02-19] VITALS (25 sets, daily range): BP systolic 90–122; BP diastolic 53–79
[2020-02-19] MEDS: ACETAMINOPHEN 325 MG TAB PO PRN ×2 (01:50→21:58)
[2020-02-19] MEDS: METOCLOPRAMIDE HCL 10 MG/2ML VIAL IV SCH ×5 (02:38→23:35)
[2020-02-19] MEDS: MIDAZOLAM HCL 5MG/ML 10ML VIAL 100 ML IV PRN ×4 (03:53→20:18)
[2020-02-19 05:40] LABS: HEMATOCRIT 31.6 % (38.2-49.6); HEMOGLOBIN 9.6 g/dL (14.0-18.0); MEAN CORPUSCULAR HEMOGLOBIN 26.7 pg (28-32); MEAN CORPUSCULAR HGB CONC 30.4 g/dL (31-35); PLATELET COUNT 268 x10e3/uL (140-360); RED BLOOD COUNT 3.59 x10e6/uL (4.3-5.7); RED CELL DISTRIBUTION WIDTH 14.5 % (11.7-14.4)
[2020-02-19] MEDS ORDERED: FENTANYL 2000MCG/NS 250 250 ML ONE ×3 (05:54→23:35)
[2020-02-19 06:00] LABS: ALANINE AMINOTRANSFERASE 57 IU/L (0-55); ALBUMIN 2.7 g/dL (3.5-5.0); ALBUMIN/GLOBULIN RATIO 0.8 (0.8-2.0); ALKALINE PHOSPHATASE 67 IU/L (40-150); ANION GAP 12.9 mmol/L (8-16); BILIRUBIN,DIRECT 0.3 mg/dL (0.0-0.5); BLOOD UREA NITROGEN 15 mg/dL (7-26); BUN/CREATININE RATIO 18 (6-25); CALCIUM 7.8 mg/dL (8.4-10.2); CARBON DIOXIDE 27 mmol/L (22-29); CHLORIDE 103 mmol/L (98-107); CREATININE, SERUM 0.82 mg/dL (0.72-1.25); EST GLOMERULAR FILTRATION RATE > 60 ML/MIN (60-); GLUCOSE 101 mg/dL (74-118); POTASSIUM 3.9 mmol/L (3.5-5.1); SODIUM 139 mmol/L (136-145)
[2020-02-19] MEDS: FENTANYL CITRATE INJ 2,000 MCG in SODIUM CHLORIDE 0.9% 250ML 210 ML IV PRN ×2 (06:11→23:35)
[2020-02-19] MEDS: CEFTRIAXONE SOD 1 GM/NS 50 ML 50 ML IV SCH (06:55)
[2020-02-19 07:02] LABS: INR 1.04; PROTHROMBIN TIME 14.2 seconds (11.9-14.5)
[2020-02-19 07:03] LABS: PARTIAL THROMBOPLASTIN TIME 29.7 seconds (23.8-35.5)
[2020-02-19 07:40] LABS: EOSINOPHILS % (MANUAL) 2 % (0-7); LYMPHOCYTES % (MANUAL) 11 % (19-48); MONOCYTES % (MANUAL) 3 % (3.4-9.0); MYELOCYTES % (MANUAL) 4 % (0-0); NEUTROPHILS % (MANUAL) 80 % (40-74); PLATELET ESTIMATE ADEQUATE; PLATELET MORPHOLOGY COMMENT NORMAL; RBC MORPHOLOGY COMMENT NORMAL
[2020-02-19] MEDS: AZITHROMYCIN 500MG/NS 250 ML 250 ML IV SCH (08:31)
[2020-02-19] MEDS: ENOXAPARIN SOD INJ 40 MG/0.4 ML SYR SC SCH ×2 (08:31→20:17)
--- NOTE | 2020-02-19 09:22 | Diagnostic Imaging Report ---
EXAMINATION: CHEST SINGLE (PORTABLE) INDICATION: ^Intubated ^20200219 ^0445 ^Y COMPARISON: 02/18/2020 FINDINGS: TUBES and LINES: Stable endotracheal and enteric tubes. Left PICC is again seen with tip extending to the right brachiocephalic vein. LUNGS: Lung volumes are low. Unchanged diffuse bilateral interstitial and airspace opacities. PLEURA: No significant pleural effusion or pneumothorax. HEART AND MEDIASTINUM: The cardiomediastinal silhouette is unchanged. BONES AND SOFT TISSUES: No acute osseous injury. UPPER ABDOMEN: No free air under the diaphragm. IMPRESSION: Low lung volumes and unchanged bilateral interstitial and airspace opacities. Malpositioned left PICC line, unchanged. Signed by: Gail Spear MD on 02/19/2020 9:19 AM
[2020-02-19] MEDS ORDERED: SODIUM CHLORIDE 0.9% 1000ML 1,000 ML ONE (11:20)
--- NOTE | 2020-02-19 11:31 | NUR ---
IM- progress note O/N see below ROS: no dizziness/confusion'/vision changes/leg pain/backpain/focal limb weakness/cp. v/s; revd PE tired appearing anicteric ns1s2 COARSE BS soft nt nd no e/t skin dry flat affect a&ox3; labs/meds revd A/P: 40yoM Sepsis- IV abx; IVF as needed Multifocal PNA- IV abx; COVID19 test Acute Resp failure- HiFlo Transaminitis- f/u repeat HYponatremia- mild; f/u Obesity- screen for DM BMI 34.3- as above Hyperglycemia- as above Prop: scd Dispo; IV abx; IVF; f/u COVID19 testing - COVID19 infection- supportive care; Acute Respiratory Failure- HiFlo. Low threshold for intubation. Intubated; moved to ICU; cct>35mins. 14 remains intubated; high PEEP; appears more stable; rec'd fluids overnight for hypotension; no pressors started; does have Sepsis. cct>35mins 615 remains vented; PEEP and O2 needs falling; cont care; 16 Treatment with Remdesivir; cont vent support; Stephen Jiang MD, PHD.
[2020-02-19] MEDS ORDERED: VECURONIUM BROMIDE FOR INJ 20 MG VIAL IV STA (11:41)
--- NOTE | 2020-02-19 13:40 | Diagnostic Imaging Report ---
EXAMINATION: CHEST XRAY LINE PLACEMENT INDICATION: Line placement COMPARISON: Chest radiograph of earlier the same day FINDINGS: LINES/TUBES:Left PICC line is unchanged, coursing up the right brachiocephalic vein. Endotracheal tube and enteric tube unchanged. LUNGS:The lung volumes remain low. Unchanged diffuse multifocal interstitial and airspace opacities. PLEURA:No pleural effusion or pneumothorax. MEDIASTINUM:The cardiomediastinal silhouette appears unchanged in size and shape. BONES/SOFT TISSUES:No acute osseous injury. ABDOMEN:No free air under the diaphragm. IMPRESSION: Left PICC line remains malpositioned. Additional support lines and tubes unchanged. Unchanged bilateral multifocal interstitial and airspace opacities consistent with multifocal pneumonia. Signed by: Gail Spear MD on 02/19/2020 1:36 PM
--- NOTE | 2020-02-19 13:49 | Progress Note ---
DATE: Pulmonary Critical Care Progress Note SUBJECTIVE: The patient had some increased tachypnea this morning. He required dose of vecuronium in addition to his Versed and his fentanyl. He remains on PRVC mode of ventilation at a rate of 38, tidal volume is 380, and his PEEP is set at 12. PHYSICAL EXAMINATION: HEENT: Shows no facial swelling or erythema. There is an oral endotracheal tube in place. He has an NG tube. He has a PICC line. CARDIAC: Reveals regular rate and rhythm with a normal S1 and S2. LUNGS: Auscultation of lungs reveals crackles at the bases. There is no wheezing. ABDOMEN: Soft and nontender. There is no rebound or guarding. EXTREMITIES: Shows no leg edema or calf tenderness. There is no cyanosis or clubbing. NEUROLOGICAL: Shows no focal abnormalities. The patient is sedated. LABORATORY DATA: White blood cell count is 9.4 and the hemoglobin is 9.6. The platelet count is 268. The BUN to creatinine ratio is normal. The other electrolytes are within normal limits. AST is 61 and ALT is 57, and the albumin is 2.7. RADIOGRAPHIC DATA: Chest x-ray shows persistent bilateral infiltrates. IMPRESSION: 1. Acute respiratory failure. 2. Viral pneumonia and COVID-19 infection. 3. Anemia. 4. Hypoalbuminemia. PLAN: 1. Continue sedation. 2. Continue current ventilator settings with lung protective strategy. 3. Complete remdesivir. The patient will receive steroids after remdesivir. 4. Continue enteral feedings. 5. DVT prophylaxis. 6. Case discussed with shift mgr nursing, day shift nursing, Respiratory, Infectious Disease, and administration. Greater than 35 minutes in direct critical care time. Andi Ventura MD [facility]/MODL /[id number]
[2020-02-19] MEDS: ROCURONIUM BROMIDE 250 MG in SODIUM CHLORIDE 0.9% 250ML 225 ML IV SCH (14:59)
--- NOTE | 2020-02-19 15:19 | Diagnostic Imaging Report ---
EXAMINATION: CHEST XRAY LINE PLACEMENT INDICATION: PICC line placement COMPARISON: Chest radiograph of earlier the same day FINDINGS: LINES/TUBES:Interval placement of left PICC line which now terminates at the superior cavoatrial junction. Endotracheal tube and enteric tube unchanged. LUNGS:Lung volumes are low. Unchanged bilateral opacities. PLEURA:No pleural effusion or pneumothorax. MEDIASTINUM:The cardiomediastinal silhouette appears normal in size and shape. BONES/SOFT TISSUES:No acute osseous injury. ABDOMEN:No free air under the diaphragm. IMPRESSION: New left PICC line now terminates at the superior cavoatrial junction. Unchanged multifocal bilateral pneumonia. Signed by: Gail Spear MD on 02/19/2020 3:16 PM
[2020-02-19] MEDS: REMDESIVIR IV SCH (15:27)
[2020-02-19] MEDS: NS 0.9% IV SCH (15:27)
[2020-02-19] MEDS: SODIUM CHLORIDE 0.9% 100 ML 100 ML IV SCH (15:28)
[2020-02-19 17:21] LABS: ABG PCO2 41 mmHg (35-45); ABG PH 7.42 (7.35-7.45)
[2020-02-19 17:22] LABS: ABG HCO3 27 mmol/L (22-26); ABG PO2 86 mmHg (80-105)
--- NOTE | 2020-02-19 17:30 | Progress Note ---
DATE: SUBJECTIVE: Mr. Mckeon remains in the intensive care unit intubated, afebrile, heart rate of 78, respiration of 25. He is on the ventilator. He was noted tachycardic earlier. He required a dose of vecuronium. PHYSICAL EXAMINATION: GENERAL: Currently intubated. VITAL SIGNS: Stable. HEENT: Not Icteric. NECK: Supple. CHEST: Few crackles bilateral. COR: S1, S2. ABDOMEN: Soft. IMPRESSION: Acute respiratory failure, viral pneumonia, COVID-19, anemia. The patient finished Remdesivir five days course. We will DC azithromycin and Rocephin after 5 days tomorrow will be his 5th days of admission. We will stop the antibiotic and we may have to start steroid. Further recommendations to follow. Continue with anticoagulation. MD CINDY Johnston/MODJenny /[id number]
--- NOTE | 2020-02-19 19:00 | NUR ---
Report received from Libby OROZCO.
--- NOTE | 2020-02-19 22:00 | NUR ---
Pt temp. 100.8 core. Tylenol given per PRN order.
[2020-02-20] VITALS (26 sets, daily range): BP systolic 85–123; BP diastolic 47–78
[2020-02-20] MEDS: MIDAZOLAM HCL 5MG/ML 10ML VIAL 100 ML IV PRN ×5 (00:40→21:30)
[2020-02-20] MEDS: ROCURONIUM BROMIDE 250 MG in SODIUM CHLORIDE 0.9% 250ML 225 ML IV SCH ×3 (00:47→11:17)
--- NOTE | 2020-02-20 01:09 | NUR ---
Pt temp. is 101.2. Ice pack and cool washrag applied to the pt. Next available dose of PRN tylenol available at 0200 and will be given.
[2020-02-20] MEDS: ACETAMINOPHEN 325 MG TAB PO PRN (02:00)
[2020-02-20 05:19] LABS: HEMATOCRIT 31.7 % (38.2-49.6); HEMOGLOBIN 9.6 g/dL (14.0-18.0); MEAN CORPUSCULAR HEMOGLOBIN 26.2 pg (28-32); MEAN CORPUSCULAR HGB CONC 30.3 g/dL (31-35); MEAN CORPUSCULAR VOLUME 86.6 fL (81-99); PLATELET COUNT 317 x10e3/uL (140-360); RED BLOOD COUNT 3.66 x10e6/uL (4.3-5.7); RED CELL DISTRIBUTION WIDTH 14.6 % (11.7-14.4)
[2020-02-20 05:42] LABS: ALANINE AMINOTRANSFERASE 54 IU/L (0-55); ALBUMIN 2.2 g/dL (3.5-5.0); ALBUMIN/GLOBULIN RATIO 0.6 (0.8-2.0); ALKALINE PHOSPHATASE 73 IU/L (40-150); ANION GAP 14.1 mmol/L (8-16); BILIRUBIN,DIRECT 0.3 mg/dL (0.0-0.5); BLOOD UREA NITROGEN 18 mg/dL (7-26); BUN/CREATININE RATIO 19 (6-25); CALCIUM 7.5 mg/dL (8.4-10.2); CARBON DIOXIDE 25 mmol/L (22-29); CHLORIDE 106 mmol/L (98-107); CREATININE, SERUM 0.93 mg/dL (0.72-1.25); EST GLOMERULAR FILTRATION RATE > 60 ML/MIN (60-); GLUCOSE 84 mg/dL (74-118); MAGNESIUM 2.2 MG/DL (1.3-2.1); PHOSPHORUS 3.5 MG/DL (2.3-4.7); POTASSIUM 4.1 mmol/L (3.5-5.1); SODIUM 141 mmol/L (136-145)
[2020-02-20] MEDS: METOCLOPRAMIDE HCL 10 MG/2ML VIAL IV SCH ×3 (05:46→18:04)
[2020-02-20 05:50] LABS: INR 0.99; PROTHROMBIN TIME 13.7 seconds (11.9-14.5)
[2020-02-20 05:51] LABS: PARTIAL THROMBOPLASTIN TIME 33.2 seconds (23.8-35.5)
--- NOTE | 2020-02-20 06:45 | NUR ---
Dr. Jiang present and rounding on the pt. Notified him that the pt continues to have a fever of 101.3 core and has received prn Tylenol multiple times. No new orders received at this time.
[2020-02-20] MEDS: CEFTRIAXONE SOD 1 GM/NS 50 ML 50 ML IV SCH (06:48)
--- NOTE | 2020-02-20 07:00 | NUR ---
Report given to Honey Cannon RN.
[2020-02-20] MEDS: AZITHROMYCIN 500MG/NS 250 ML 250 ML IV SCH (08:11)
[2020-02-20] MEDS: PROPOFOL IV EMULSION 10 MG/ML 50 ML VIAL IV SCH (08:11)
[2020-02-20] MEDS: ENOXAPARIN SOD INJ 40 MG/0.4 ML SYR SC SCH ×2 (08:12→21:22)
[2020-02-20] MEDS: FENTANYL CITRATE INJ 2,000 MCG in SODIUM CHLORIDE 0.9% 250ML 210 ML IV PRN (11:17)
--- NOTE | 2020-02-20 11:39 | NUR ---
IM- progress note O/N see below ROS: no dizziness/confusion'/vision changes/leg pain/backpain/focal limb weakness/cp. v/s; revd PE tired appearing anicteric ns1s2 COARSE BS soft nt nd no e/t skin dry flat affect a&ox3; labs/meds revd A/P: 40yoM Sepsis- IV abx; IVF as needed Multifocal PNA- IV abx; COVID19 test Acute Resp failure- HiFlo Transaminitis- f/u repeat HYponatremia- mild; f/u Obesity- screen for DM BMI 34.3- as above Hyperglycemia- as above Prop: scd Dispo; IV abx; IVF; f/u COVID19 testing 6- COVID19 infection- supportive care; Acute Respiratory Failure- HiFlo. Low threshold for intubation. Intubated; moved to ICU; cct>35mins. 6-14 remains intubated; high PEEP; appears more stable; rec'd fluids overnight for hypotension; no pressors started; does have Sepsis. cct>35mins 6-15 remains vented; PEEP and O2 needs falling; cont care; 6-16 Treatment with Remdesivir; cont vent support; 6-17 cont care; remains intubated; on 14PEEP; f/u CXR; continue directed therapy. Stephen Jiang MD, PHD.
[2020-02-20] MEDS: DEXAMETHASONE SOD PHOS 10 MG/1 ML VIAL IV SCH (12:09)
--- NOTE | 2020-02-20 12:40 | Progress Note ---
DATE: SUBJECTIVE: Mr. Mckeon remains in the intensive care unit. This is day #5 of hospitalization. The patient is on FiO2 of 50, PEEP of 12. OBJECTIVE: GENERAL: Intubated and sedated. VITAL SIGNS: He is running fever 101.3, heart rate of 81, O2 saturation of 99 on FiO2 55. HEENT: He is not icteric. Oral intubation. CHEST: Few crackles. COR: S1 and S2. No S3, S4, or murmur. ABDOMEN: Soft. Bowel sounds present. EXTREMITIES: No edema. SKIN: There is no rash. IMPRESSION: COVID-19 on admission, respiratory failure on admission. He is currently on remdesivir to finish 5 days course. I am going to stop his antibiotic today. This is day #5. We will start him on methylprednisolone 6 mg and dexamethasone 6 mg IV daily. A total of 10 dose and reassess clinically for infection, deep venous thrombosis, etc., and other complication. Continue with Lovenox as ordered. MD CINDY Johnston/MODL /[id number]
[2020-02-20] MEDS ORDERED: ACETAMINOPHEN 1000 MG/100 ML IV PRN (12:45)
--- NOTE | 2020-02-20 13:40 | Progress Note ---
DATE: SUBJECTIVE: The patient remains on a PRVC at a rate of 28 with a tidal volume of 400 and a PEEP of 10. His FiO2 is set at 50%. He is on Versed at 10 mg as well as fentanyl at 200 mcg. He is also on vecuronium. He is receiving enteral feedings. He is not having any fevers now, although he did have a temperature last night of 102. LABORATORY DATA: BUN to creatinine ratio is normal. Other electrolytes are within normal limits. The magnesium is 2.2 and the albumin is 2.2. Hemoglobin is 9.6 and the white blood cell count is 8.9. RADIOGRAPHIC DATA: Shows bilateral infiltrates. IMPRESSION: 1. Acute respiratory failure. 2. Viral pneumonia and COVID-19 infection. 3. Anemia. 4. Hypoalbuminemia. PLAN: 1. Discontinue vecuronium to avoid worsening myopathy. 2. Continue Versed and fentanyl. 3. The patient is scheduled to complete Remdesivir in 2 days. 4. Begin dexamethasone 6 mg IV daily. 5. Continue enteral feedings. 6. Continue DVT prophylaxis. 7. Specialty bed to prevent decubitus ulcers. 8. Case discussed with nursing, Respiratory, Infectious Disease and administration. Greater than 35 minutes in direct critical care time. MD CHRISTY Soler/ARNAV /[id number]
[2020-02-20 13:46] LABS: ABG PCO2 44 mmHg (35-45); ABG PH 7.38 (7.35-7.45); ABG PO2 84 mmHg (80-105)
[2020-02-20 13:47] LABS: ABG HCO3 25 mmol/L (22-26)
[2020-02-20] MEDS: SODIUM CHLORIDE 0.9% 100 ML 100 ML IV SCH (16:24)
[2020-02-20] MEDS: REMDESIVIR IV SCH (16:24)
[2020-02-20] MEDS: NS 0.9% IV SCH (16:24)
[2020-02-21] VITALS (25 sets, daily range): BP systolic 104–146; BP diastolic 64–84
[2020-02-21] MEDS: MIDAZOLAM HCL 5MG/ML 10ML VIAL 100 ML IV PRN ×4 (02:43→19:05)
[2020-02-21] MEDS: METOCLOPRAMIDE HCL 10 MG/2ML VIAL IV SCH ×4 (02:43→17:51)
[2020-02-21 05:05] LABS: BASOPHILS % 0.3 % (0.0-1.0); HEMATOCRIT 33.8 % (38.2-49.6); HEMOGLOBIN 10.5 g/dL (14.0-18.0); LYMPHOCYTES # (AUTO) 1.2 (1.0-3.2); LYMPHOCYTES % 11.5 % (18.0-39.1); MEAN CORPUSCULAR HEMOGLOBIN 26.6 pg (28-32); MEAN CORPUSCULAR HGB CONC 31.1 g/dL (31-35); MEAN CORPUSCULAR VOLUME 85.8 fL (81-99); MONOCYTES # (AUTO) 0.5 (0.2-0.8); MONOCYTES % 4.6 % (4.4-11.3); NEUTROPHILS # (AUTO) 6.6 (2.1-6.9); NEUTROPHILS % 65.8 % (38.7-80.0); PLATELET COUNT 393 x10e3/uL (140-360); RED BLOOD COUNT 3.94 x10e6/uL (4.3-5.7)
[2020-02-21 05:29] LABS: ALANINE AMINOTRANSFERASE 53 IU/L (0-55); ALBUMIN 2.3 g/dL (3.5-5.0); ALBUMIN/GLOBULIN RATIO 0.5 (0.8-2.0); ALKALINE PHOSPHATASE 78 IU/L (40-150); ANION GAP 14.4 mmol/L (8-16); BILIRUBIN,DIRECT 0.3 mg/dL (0.0-0.5); BLOOD UREA NITROGEN 18 mg/dL (7-26); BUN/CREATININE RATIO 24 (6-25); CALCIUM 7.9 mg/dL (8.4-10.2); CARBON DIOXIDE 24 mmol/L (22-29); CHLORIDE 105 mmol/L (98-107); CREATININE, SERUM 0.76 mg/dL (0.72-1.25); EST GLOMERULAR FILTRATION RATE > 60 ML/MIN (60-); GLUCOSE 139 mg/dL (74-118); INR 0.98; PARTIAL THROMBOPLASTIN TIME 33.3 seconds (23.8-35.5); POTASSIUM 4.4 mmol/L (3.5-5.1); PROTHROMBIN TIME 13.6 seconds (11.9-14.5); SODIUM 139 mmol/L (136-145)
[2020-02-21] MEDS: DEXAMETHASONE SOD PHOS 10 MG/1 ML VIAL IV SCH (06:20)
[2020-02-21] MEDS: FENTANYL 2000MCG/NS 250 250 ML IV PRN ×2 (06:24→16:58)
[2020-02-21] MEDS ORDERED: ALTEPLASE RECOMBINANT 2 MG/2 ML VIAL IV PRN (07:15)
[2020-02-21] MEDS: PROPOFOL IV EMULSION 10 MG/ML 50 ML VIAL IV SCH (08:30)
[2020-02-21] MEDS: ZINC SULFATE 220 MG CAP PO SCH (08:35)
[2020-02-21] MEDS: ASCORBIC ACID 500 MG TAB PO SCH ×2 (08:35→17:51)
[2020-02-21] MEDS: ENOXAPARIN SOD INJ 40 MG/0.4 ML SYR SC SCH ×2 (08:35→21:35)
--- NOTE | 2020-02-21 08:42 | Diagnostic Imaging Report ---
EXAMINATION: CHEST SINGLE (PORTABLE) INDICATION: Respiratory failure COMPARISON: Chest radiograph 02/19/2020 FINDINGS: LINES/TUBES:Support lines and tubes unchanged LUNGS:The lungs are moderately inflated. Unchanged bilateral multifocal patchy opacities. PLEURA:No pleural effusion or pneumothorax. MEDIASTINUM:The cardiomediastinal silhouette appears unchanged in size and shape. BONES/SOFT TISSUES:No acute osseous injury. ABDOMEN:No free air under the diaphragm. IMPRESSION: No significant interval change. Signed by: Gail Spear MD on 02/21/2020 8:39 AM
[2020-02-21 09:27] LABS: ABG HCO3 26 mmol/L (22-26); ABG PCO2 41 mmHg (35-45); ABG PH 7.41 (7.35-7.45); ABG PO2 60 mmHg (80-105)
--- NOTE | 2020-02-21 09:43 | NUR ---
IM- progress note O/N see below ROS: no dizziness/confusion'/vision changes/leg pain/backpain/focal limb weakness/cp. v/s; revd PE tired appearing anicteric ns1s2 COARSE BS soft nt nd no e/t skin dry flat affect a&ox3; labs/meds revd A/P: 40yoM Sepsis- IV abx; IVF as needed Multifocal PNA- IV abx; COVID19 test Acute Resp failure- HiFlo Transaminitis- f/u repeat HYponatremia- mild; f/u Obesity- screen for DM BMI 34.3- as above Hyperglycemia- as above Prop: scd Dispo; IV abx; IVF; f/u COVID19 testing 6- COVID19 infection- supportive care; Acute Respiratory Failure- HiFlo. Low threshold for intubation. Intubated; moved to ICU; cct>35mins. 6-14 remains intubated; high PEEP; appears more stable; rec'd fluids overnight for hypotension; no pressors started; does have Sepsis. cct>35mins 6-15 remains vented; PEEP and O2 needs falling; cont care; 6-16 Treatment with Remdesivir; cont vent support; 6-17 cont care; remains intubated; on 14PEEP; f/u CXR; continue directed therapy. 6-18 CXR no changes; Reduced PEEP; reduced O2 needs to 55%; stable; cont current care; Stephen Jiang MD, PHD.
--- NOTE | 2020-02-21 12:19 | Progress Note ---
DATE: SUBJECTIVE: The patient is seen and evaluated. Available labs and notes reviewed. Discussed with the nurse. Discussed with Dr. Horne. REVIEW OF SYSTEMS: Unable to obtain review of systems secondary to the patient's medical condition. He is orally intubated and on fentanyl and Versed. Discussed with the nurse. The patient is on 200 of fentanyl and 10 of Versed. FiO2 of 55% with a PEEP of 10. Feeding tube going at 50 mL an hour with a plan to reach the goal of 55 mL an hour. The patient remains orally intubated and sedated. No interaction with me. MEDICATIONS: The patient is currently on methotrexate, zinc supplement, and vitamin C as far as Infectious Disease point of view. LABORATORY STUDIES: White count of 9.96, hemoglobin 10.5, and platelet 393. Sodium 139, potassium 4.4, and creatinine 0.76. Serology: Coronavirus PCR is positive on 02/15/2020. MICROBIOLOGY: Blood culture negative on 02/15/2020. RADIOLOGY STUDIES: Chest x-ray from today showed no significant interval change. Lungs are moderately inflated. Bilateral multifocal patchy opacities without significant change. PHYSICAL EXAMINATION: VITAL SIGNS: Temperature 99.5, pulse 82, respirations vent and intubation at a rate of 21, and blood pressure 126/79. GENERAL: Orally intubated, supine position. No obvious acute distress. Feeding tube. Fentanyl and Versed as mentioned above. FiO2 and PEEP as mentioned above. CV: S1-S2. CHEST: Equal expansion. Decreased breath sounds. ABDOMEN: Soft. Obese some degree. EXTREMITIES: No significant edema or maybe trace of feet. Thighs, no edema noted. Upper extremities, no edema significantly noted. ASSESSMENT AND PLAN: 1. Coronavirus disease-19 on admission. 2. Respiratory failure. 3. Pneumonia. The patient completed 5 days of antibiotics, currently on methotrexate, zinc and vitamin C. The patient is also on Lovenox. Discussed with Dr. Horne. Please refer to chart for more information. Dictated by Miles Hutson PA-C (Al) Luz Elena Horne MD /MODL /[id number]
--- NOTE | 2020-02-21 12:39 | NUR ---
Nutrition Intervention Note RD Recommendation(s) for Physician: -Recommend modifying formula to Vital High Protein @ goal rate of 55 mL/hr (provides 1320 kcal, 116 g protein, and 1104 mL water) -Water flushes and fluid management per MD Plan of Care: RD following, monitoring for tolerance and adequacy, tube feed recommendation Nutrition reason for involvement: follow up RD Assessment 02/20: Follow up. Pt remains intubated and sedated with Versed, Propofol discontinued. Pt remains on Glucerna 1.2 TF, infusing at 50 ml/hr this am. Pt discussed during MDR- TF rec's reiterated. Current TF rec's remain appropriate to better meet protein needs on vent and provide marine oil for inflammation as well as immune support. Will continue to monitor. (02/18/20) Pt is a 40 year old male admitted with fever and multifocal pneumonia. Pt is COVID-19+ and is currently intubated. Pt was started on tube feeding. Recommendations provided. RN reports pt is currently receiving 3.4 mL/hr of propofol which provides 90 kcal. There are no previous weights in chart. Will continue to monitor. Principal Problems/Diagnoses: fever and multifocal pneumonia PMH: obesity GI: LBM 02/15, no reported BM per RN Skin: intact Labs: 02/20: Na 139, K 4.4, BUN 18, Cr 0.76, Gluc 139, Ca 7.9, Phos 3.5, Mg 2.2 (02/17) Na 138, BUN 13, Cr 0.76, Glu 94, HgbA1c 6.0, Ca 7.9, AST 81. ALT 62 Meds: vitamin C, Zn Sulfate, dexamethasone, IV albumin IVF/Drips: Versed drip, Fentanyl drip Ht: 64 inches Wt: 218 lbs BMI: 37.4 kg/m2 IBW: 130 lbs Malnutrition Evaluation (02/18/20) Unable to assess. Will re-evaluate at follow-up as appropriate. Nutrition Prescription (Diet Order): Glucerna 1.2 @ 30 mL/hr ordered, however TF infusing at 50 ml/hr this am (provides 864 kcal and 43 g protein) Estimated Nutritional Needs: 9226-8225 calories/day (22-25 kcal/kg IBW) 89-118 g protein/day (1.5-2 g pro/kg IBW) Diet Adequacy: Meeting calorie needs, Not meeting protein needs Tolerance: Tolerating TF Diet Education Needs Assessment: Diet education not indicated, patient on temporary/transition diet. Nutrition Care Level: moderate Nutrition Diagnosis: Inadequate oral intake related to respiratory failure/mechanical ventilation as evidenced by need for enteral nutrition Goal: Patient will meet 75-100% of estimated needs by follow up Progress: progressing Interventions: -Composition, Rate, Route, IVF, Recommended Modifications, Collaboration with other providers Monitoring/Evaluation: -Total energy intake, Total protein intake, Formula/Solution, Prescription medication, Weight change Signed: Linda Hyde RD, LD, CNSC
[2020-02-21] MEDS ORDERED: MIDAZOLAM HCL 5MG/ML 10ML VIAL 100 ML IV ONE (12:59)
--- NOTE | 2020-02-21 14:40 | Progress Note ---
DATE: SUBJECTIVE: The patient is afebrile. He remains on Versed at 10 as well as fentanyl at 200. He is on a PRVC mode of ventilation at a rate of 26. His FiO2 is set at 55% and he is on 10 of PEEP. His tidal volume is set at 400. PHYSICAL EXAMINATION: VITAL SIGNS: The patient is afebrile with a T-max of 99.7, and the respiratory rate is 26. He is on a PRVC mode of ventilation. His blood pressure is 132/75. HEENT: No facial swelling or erythema. There is an oral endotracheal tube. CARDIAC: Regular rate and rhythm with normal S1, S2. LUNGS: Auscultation of lungs shows clear breath sounds bilaterally. There is no wheezing. ABDOMEN: Soft, nontender. There is no rebound or guarding. EXTREMITIES: No leg edema or calf tenderness. There is no cyanosis or clubbing. There is an arterial line in place. There is a PICC line in place. LABORATORY DATA: The BUN to creatinine ratio is 18 to 0.76. Other electrolytes are within normal limits. Albumin is 2.3. White blood cell count is 9.9 and hemoglobin is 10.5. The platelet count is 393. Blood gas is 7.4, 41, 60, and 26. RADIOGRAPHIC DATA: There are bilateral infiltrates. IMPRESSION: 1. Respiratory failure. 2. Viral pneumonia and coronavirus disease-19 infection. 3. Anemia. PLAN: 1. Continue mechanical ventilation. Continue lung protective strategy. 2. The patient is completing remdesivir. 3. Dexamethasone daily. 4. Continue Versed and fentanyl and wean as tolerated. 5. Continue Lovenox for DVT prophylaxis. 6. Specialty bed to help prevent decubitus ulcers 7. greater than 35 minutes in direct critical care time MD CHRISTY Soler/ARNAV /[id number]
--- NOTE | 2020-02-21 17:22 | NUR ---
e patient is afebrile. He remains on Versed at 10 as well as fentanyl at 200. He is on a PRVC mode of ventilation at a rate of 26. His FiO2 is set at 55% and he is on 10 of PEEP. His tidal volume is set at 400. PHYSICAL EXAMINATION: VITAL SIGNS: The patient is afebrile with a T-max of 99.7, and the respiratory rate is 26. He is on a PRVC mode of ventilation. His blood pressure is 132/75. HEENT: No facial swelling or erythema. There is an oral endotracheal tube. CARDIAC: Regular rate and rhythm with normal S1, S2. LUNGS: Auscultation of lungs shows clear breath sounds bilaterally. There is no wheezing. ABDOMEN: Soft, nontender. There is no rebound or guarding. EXTREMITIES: No leg edema or calf tenderness. There is no cyanosis or clubbing. There is an arterial line in place. There is a PICC line in place. LABORATORY DATA: The BUN to creatinine ratio is 18 to 0.76. Other electrolytes are within normal limits. Albumin is 2.3. White blood cell count is 9.9 and hemoglobin is 10.5. The platelet count is 393. Blood gas is 7.4, 41, 60, and 26. RADIOGRAPHIC DATA: There are bilateral infiltrate [id number]
--- NOTE | 2020-02-21 20:36 | Progress Note ---
DATE: SUBJECTIVE: Mr. Mckeon is in the intensive care unit, afebrile, remains on the ventilator and Versed. His laboratory data reviewed, chart reviewed. PHYSICAL EXAMINATION: GENERAL: He is currently alert, noncommunicative. VITAL SIGNS: Stable, afebrile. HEENT: He is not icteric. NECK: Supple. CHEST: Few crackles, bilateral coarse. ABDOMEN: Soft. Bowel sounds present. No tenderness. EXTREMITIES: No edema. SKIN: No rash. IMPRESSION: COVID-19, respiratory failure, status post remdesivir, on Decadron, on Lovenox. Continue supportive care status post antibiotic slowly getting better. Discussed with the medical team. The patient may be transferred to another facility because we needs beds. We will follow. MD CINDY Johnston/MODL /[id number]
[2020-02-21 22:50] LABS: ABG HCO3 25 mmol/L (22-26); ABG PCO2 40 mmHg (35-45); ABG PH 7.41 (7.35-7.45); ABG PO2 67 mmHg (80-105)
[2020-02-22] VITALS (27 sets, daily range): BP systolic 115–160; BP diastolic 67–88
[2020-02-22] MEDS: METOCLOPRAMIDE HCL 10 MG/2ML VIAL IV SCH ×5 (00:58→23:35)
[2020-02-22] MEDS: MIDAZOLAM HCL 5MG/ML 10ML VIAL 100 ML IV PRN ×4 (01:50→22:05)
[2020-02-22] MEDS: FENTANYL 2000MCG/NS 250 250 ML IV PRN ×4 (02:25→23:50)
[2020-02-22 04:53] LABS: BASOPHILS # (AUTO) 0.1 (0.0-0.1); BASOPHILS % 0.3 % (0.0-1.0); EOSINOPHILS % 0.1 % (0.0-6.0); HEMATOCRIT 33.7 % (38.2-49.6); HEMOGLOBIN 10.7 g/dL (14.0-18.0); LYMPHOCYTES # (AUTO) 1.6 (1.0-3.2); LYMPHOCYTES % 10.2 % (18.0-39.1); MEAN CORPUSCULAR HEMOGLOBIN 26.4 pg (28-32); MEAN CORPUSCULAR HGB CONC 31.8 g/dL (31-35); MEAN CORPUSCULAR VOLUME 83.2 fL (81-99); MONOCYTES # (AUTO) 0.8 (0.2-0.8); MONOCYTES % 5.2 % (4.4-11.3); NEUTROPHILS # (AUTO) 10.9 (2.1-6.9); NEUTROPHILS % 71.6 % (38.7-80.0); PLATELET COUNT 448 x10e3/uL (140-360); RED BLOOD COUNT 4.05 x10e6/uL (4.3-5.7); RED CELL DISTRIBUTION WIDTH 13.8 % (11.7-14.4)
[2020-02-22 05:00] LABS: INR 0.96; PROTHROMBIN TIME 13.3 seconds (11.9-14.5)
[2020-02-22 05:01] LABS: PARTIAL THROMBOPLASTIN TIME 28.4 seconds (23.8-35.5)
[2020-02-22 05:08] LABS: ALANINE AMINOTRANSFERASE 52 IU/L (0-55); ALBUMIN 2.3 g/dL (3.5-5.0); ALBUMIN/GLOBULIN RATIO 0.5 (0.8-2.0); ALKALINE PHOSPHATASE 70 IU/L (40-150); ANION GAP 12.6 mmol/L (8-16); BILIRUBIN,DIRECT 0.2 mg/dL (0.0-0.5); BLOOD UREA NITROGEN 22 mg/dL (7-26); BUN/CREATININE RATIO 30 (6-25); CARBON DIOXIDE 26 mmol/L (22-29); CHLORIDE 101 mmol/L (98-107); CREATININE, SERUM 0.73 mg/dL (0.72-1.25); EST GLOMERULAR FILTRATION RATE > 60 ML/MIN (60-); GLUCOSE 136 mg/dL (74-118); MAGNESIUM 2.1 MG/DL (1.3-2.1); PHOSPHORUS 3.7 MG/DL (2.3-4.7); POTASSIUM 4.6 mmol/L (3.5-5.1); SODIUM 135 mmol/L (136-145)
[2020-02-22] MEDS: DEXAMETHASONE SOD PHOS 10 MG/1 ML VIAL IV SCH (06:10)
[2020-02-22 07:35] LABS: LYMPHOCYTES % (MANUAL) 7 % (19-48); MONOCYTES % (MANUAL) 4 % (3.4-9.0); MYELOCYTES % (MANUAL) 4 % (0-0); NEUTROPHILS % (MANUAL) 85 % (40-74)
[2020-02-22 07:36] LABS: PLATELET ESTIMATE SLIGHTLY INCREASED; PLATELET MORPHOLOGY COMMENT FEW LARGE; RBC MORPHOLOGY COMMENT NORMAL
[2020-02-22] MEDS: PROPOFOL IV EMULSION 10 MG/ML 50 ML VIAL IV SCH (08:27)
--- NOTE | 2020-02-22 08:35 | NUR ---
IM- progress note O/N see below ROS: no dizziness/confusion'/vision changes/leg pain/backpain/focal limb weakness/cp. v/s; revd PE tired appearing anicteric ns1s2 COARSE BS soft nt nd no e/t skin dry flat affect a&ox3; labs/meds revd A/P: 40yoM Sepsis- IV abx; IVF as needed Multifocal PNA- IV abx; COVID19 test Acute Resp failure- HiFlo Transaminitis- f/u repeat HYponatremia- mild; f/u Obesity- screen for DM BMI 34.3- as above Hyperglycemia- as above Prop: scd Dispo; IV abx; IVF; f/u COVID19 testing - COVID19 infection- supportive care; Acute Respiratory Failure- HiFlo. Low threshold for intubation. Intubated; moved to ICU; cct>35mins. 02-16 remains intubated; high PEEP; appears more stable; rec'd fluids overnight for hypotension; no pressors started; does have Sepsis. cct>35mins 615 remains vented; PEEP and O2 needs falling; cont care; 16 Treatment with Remdesivir; cont vent support; 02-19 cont care; remains intubated; on 14PEEP; f/u CXR; continue directed therapy. 18 CXR no changes; Reduced PEEP; reduced O2 needs to 55%; stable; cont current care; 02-21 accepted at [facility] transfer; continue supportive care; Stephen Jiang MD, PHD.
--- NOTE | 2020-02-22 08:42 | Diagnostic Imaging Report ---
EXAMINATION: CHEST SINGLE (PORTABLE) INDICATION: Respiratory failure COMPARISON: Chest radiograph 02/21/2020 FINDINGS: LINES/TUBES:Support lines and tubes unchanged LUNGS:The lungs are moderately inflated. Unchanged bilateral multifocal patchy opacities. PLEURA:No pleural effusion or pneumothorax. MEDIASTINUM:The cardiomediastinal silhouette appears unchanged in size and shape. BONES/SOFT TISSUES:No acute osseous injury. ABDOMEN:No free air under the diaphragm. IMPRESSION: No significant interval change. Signed by: Gail Spear MD on 02/22/2020 8:39 AM
--- NOTE | 2020-02-22 08:47 | Diagnostic Imaging Report ---
Exam: KUB - 2 views Indication: Abdominal distention, constipation Comparison: KUB of 02/18/2020 Findings: NG tube terminates in the descending portion of the duodenum. Nonobstructive bowel gas pattern. No free air. No acute osseous injury. Impression: NG tube terminates in the descending portion of the duodenum. Nonobstructive bowel gas pattern with normal stool burden. Signed by: Gail Spear MD on 02/22/2020 8:44 AM
[2020-02-22 08:54] LABS: ABG HCO3 26 mmol/L (22-26); ABG PCO2 41 mmHg (35-45); ABG PH 7.41 (7.35-7.45); ABG PO2 77 mmHg (80-105)
[2020-02-22] MEDS: ENOXAPARIN SOD INJ 40 MG/0.4 ML SYR SC SCH ×2 (09:15→21:10)
[2020-02-22] MEDS: ZINC SULFATE 220 MG CAP PO SCH (09:15)
[2020-02-22] MEDS: ASCORBIC ACID 500 MG TAB PO SCH ×2 (09:15→18:17)
[2020-02-22] MEDS: EYE LUBRICANT OPTH OINT 3.5GM TUBE OP SCH (09:15)
[2020-02-22] MEDS: ROCURONIUM BROMIDE 250 MG in SODIUM CHLORIDE 0.9% 250ML 225 ML IV SCH ×2 (10:45→20:50)
[2020-02-22 11:32] LABS: BAND NEUTROPHILS % (MANUAL) 2 %; EOSINOPHILS % (MANUAL) 2 % (0-7); LYMPHOCYTES % (MANUAL) 37 % (19-48); MONOCYTES % (MANUAL) 2 % (3.4-9.0); MYELOCYTES % (MANUAL) 17 % (0-0); NEUTROPHILS % (MANUAL) 40 % (40-74); NUCLEATED RED BLOOD CELLS 1
[2020-02-22 11:33] LABS: ANISOCYTOSIS SLIGHT; PLATELET ESTIMATE ADEQUATE; PLATELET MORPHOLOGY COMMENT FEW LARGE; RBC MORPHOLOGY COMMENT NORMAL
[2020-02-22] MEDS ORDERED: VANCOMYCIN 1GM/NS 250 ML 250 ML IV ONE (12:30)
--- NOTE | 2020-02-22 13:20 | Progress Note ---
DATE: SUBJECTIVE: The patient remains on a mechanical ventilator. He is now on a PRVC mode of ventilation at a rate of 26 with a tidal volume of 400. His PEEP is set at 10 and his FiO2 is set at 45%. He is saturating 98%. The patient is on 10 mg of Versed and 300 of fentanyl. Despite this, he was not synchronized well with the vent easily. He was started on rocuronium temporarily. He continues to receive enteral feedings. PHYSICAL EXAMINATION: VITAL SIGNS: The blood pressure is 140/71, pulse is 72. He is afebrile. The patient is urinating. He remains on the PRVC mode of ventilation as noted above. He is on Versed and fentanyl. He is also on low-dose rocuronium. He has an oral endotracheal tube. He has a PICC line in place. There is a nasogastric tube. CARDIAC: Regular rate and rhythm with normal S1, S2. LUNGS: Auscultation of lungs reveals rhonchorous breath sounds bilaterally. There is no wheezing. ABDOMEN: Soft, nontender. There is no rebound or guarding. EXTREMITIES: No leg edema or calf tenderness. LABORATORY DATA: White blood cell count is 15.2 and hemoglobin is 10.7. The platelet count is 448. The patient has 85% neutrophils and 4 myelocytes, which is increased from yesterday. BUN to creatinine ratio is 22 to 0.73. The sodium is 135. Glucose is 136. Albumin is 2.3 and the procalcitonin is 0.39. RADIOGRAPHIC DATA: Chest x-ray shows bilateral infiltrates. IMPRESSION: 1. Acute respiratory failure. 2. Viral pneumonia and coronavirus disease-19 infection. 3. Superimposed bacterial pneumonia with leukocytosis. 4. Anemia. 5. Sedation intolerance. PLAN: 1. Continue mechanical ventilation. The patient is on a lung protective strategy. We will continue to wean the ventilator as tolerated. Repeat ABG later this afternoon. 2. Continue dexamethasone daily. 3. The patient has completed remdesivir. 4. Begin meropenem and vancomycin for possible bacterial superinfection. 5. Continue Versed and fentanyl. 6. Attempt to stop rocuronium as soon as possible. 7. Continue Lovenox for DVT prophylaxis. 8. The patient is now on a specialty bed to prevent decubitus ulcers. 9. The patient has Provone boots to prevent footdrop. 10. Eye care with Lacri-Lube. Case discussed with arts education teacher nursing, dayshift nursing, Respiratory therapy, Infectious Disease, family, and administration. Greater than 35 minutes in direct critical care time. MD CHRISTY Soler/ARNAV /[id number]
[2020-02-22] MEDS ORDERED: MEROPENEM 1GM 100 ML IV SCH (14:00)
[2020-02-22] MEDS ORDERED: VANCOMYCIN 1GM/NS 250 ML 250 ML ONE (16:45)
--- NOTE | 2020-02-22 17:55 | Progress Note ---
DATE: SUBJECTIVE: Mr. Mckeon remains in intensive care unit and intubated. He is on PRVC mode with a rate of 26, tidal volume 400. His PEEP is at 10, FiO2 45%, saturation 98%, 10 mg of Versed, 300 mg of fentanyl. PHYSICAL EXAMINATION: VITAL SIGNS: Stable, afebrile. O2 saturation is 100%. HEENT: He is not icteric. NECK: Supple. CHEST: Few crackles. HEART: S1 and S2. No S3, S4, or murmur. ABDOMEN: Soft. Bowel sounds present. No tenderness. EXTREMITIES: No edema. SKIN: No rashes. LABORATORY DATA: His white count is 15.27, hemoglobin of 10, and hematocrit 33. His sodium 135 and potassium 4.6. Procalcitonin was 0.39. MEDICATIONS: He is currently on fentanyl, vitamin C, zinc, Lovenox 40 subcutaneous q.24 hours, dexamethasone which was started on . IMPRESSION: Leukocytosis secondary to steroid. His procalcitonin is low. Can discontinue antibiotic. Continue with local care as ordered for follow. MD CINDY Johnston/MODL /[id number]
[2020-02-22 21:00] LABS: ABG HCO3 27 mmol/L (22-26); ABG PCO2 42 mmHg (35-45); ABG PH 7.42 (7.35-7.45); ABG PO2 69 mmHg (80-105)
[2020-02-23] VITALS (27 sets, daily range): BP systolic 114–163; BP diastolic 66–90
[2020-02-23] MEDS: MIDAZOLAM HCL 5MG/ML 10ML VIAL 100 ML IV PRN ×3 (03:12→13:30)
[2020-02-23] MEDS ORDERED: LORAZEPAM INJ 2 MG/ML VIAL IV PRN (04:45)
[2020-02-23 04:49] LABS: BASOPHILS % 0.3 % (0.0-1.0); EOSINOPHILS % 0.1 % (0.0-6.0); HEMATOCRIT 34.5 % (38.2-49.6); LYMPHOCYTES # (AUTO) 1.5 (1.0-3.2); LYMPHOCYTES % 11.4 % (18.0-39.1); MEAN CORPUSCULAR HGB CONC 31.9 g/dL (31-35); MEAN CORPUSCULAR VOLUME 84.8 fL (81-99); MONOCYTES # (AUTO) 0.8 (0.2-0.8); MONOCYTES % 5.8 % (4.4-11.3); NEUTROPHILS # (AUTO) 9.7 (2.1-6.9); NEUTROPHILS % 72.4 % (38.7-80.0); PLATELET COUNT 451 x10e3/uL (140-360); RED BLOOD COUNT 4.07 x10e6/uL (4.3-5.7); RED CELL DISTRIBUTION WIDTH 13.3 % (11.7-14.4)
[2020-02-23 05:06] LABS: INR 1.02
[2020-02-23 05:11] LABS: ALANINE AMINOTRANSFERASE 65 IU/L (0-55); ALBUMIN 2.4 g/dL (3.5-5.0); ALBUMIN/GLOBULIN RATIO 0.6 (0.8-2.0); ALKALINE PHOSPHATASE 65 IU/L (40-150); ANION GAP 8.2 mmol/L (8-16); BLOOD UREA NITROGEN 18 mg/dL (7-26); BUN/CREATININE RATIO 27 (6-25); CALCIUM 7.9 mg/dL (8.4-10.2); CARBON DIOXIDE 28 mmol/L (22-29); CHLORIDE 100 mmol/L (98-107); CREATININE, SERUM 0.67 mg/dL (0.72-1.25); EST GLOMERULAR FILTRATION RATE > 60 ML/MIN (60-); GLUCOSE 142 mg/dL (74-118); POTASSIUM 4.2 mmol/L (3.5-5.1); SODIUM 132 mmol/L (136-145)
[2020-02-23] MEDS ORDERED: MINERAL OIL 132 ML BTL PR ONE (05:30)
[2020-02-23] MEDS: DEXAMETHASONE SOD PHOS 10 MG/1 ML VIAL IV SCH (06:20)
[2020-02-23] MEDS: METOCLOPRAMIDE HCL 10 MG/2ML VIAL IV SCH ×4 (06:20→23:20)
--- NOTE | 2020-02-23 07:00 | NUR ---
pt matteo 55-62, decreased sedation fentanyl to 225mcg/hr and versed to 8mg/hr. will continue to monitor
[2020-02-23] MEDS: FENTANYL 2000MCG/NS 250 250 ML IV PRN (07:19)
--- NOTE | 2020-02-23 07:32 | Diagnostic Imaging Report ---
EXAMINATION: CHEST SINGLE (PORTABLE) INDICATION: ^Resp FAilure ^[id number] ^[id number] COMPARISON: 02/22/2020 FINDINGS: AP view TUBES and LINES: Unchanged endotracheal tube and nasogastric tube. LUNGS: Low lung volumes. Unchanged diffuse pulmonary airspace disease. PLEURA: No pleural effusion or pneumothorax. HEART AND MEDIASTINUM: The cardiomediastinal silhouette is unremarkable. BONES AND SOFT TISSUES: No acute osseous lesion. Soft tissues are unremarkable. UPPER ABDOMEN: No free air under the diaphragm. IMPRESSION: Unchanged diffuse pulmonary airspace disease consistent with provided history of viral pneumonia. Signed by: Jose M Rivera MD on 02/23/2020 7:29 AM
[2020-02-23] MEDS: PROPOFOL IV EMULSION 10 MG/ML 50 ML VIAL IV SCH ×5 (07:40→23:20)
[2020-02-23] MEDS: ASCORBIC ACID 500 MG TAB PO SCH ×2 (08:20→17:19)
[2020-02-23] MEDS: ENOXAPARIN SOD INJ 40 MG/0.4 ML SYR SC SCH ×2 (08:20→20:34)
[2020-02-23] MEDS: ZINC SULFATE 220 MG CAP PO SCH (08:20)
[2020-02-23] MEDS: EYE LUBRICANT OPTH OINT 3.5GM TUBE OP SCH (08:20)
--- NOTE | 2020-02-23 08:20 | NUR ---
vent changes made per Dr. Darryl Ventura. FiO2 decreased to 40% and RR 24. pt pox 100%. will continue to monitor
[2020-02-23 08:28] LABS: ABG HCO3 25 mmol/L (22-26); ABG PCO2 39 mmHg (35-45); ABG PH 7.43 (7.35-7.45); ABG PO2 75 mmHg (80-105)
[2020-02-23 08:34] LABS: LYMPHOCYTES % (MANUAL) 16 % (19-48); MONOCYTES % (MANUAL) 7 % (3.4-9.0); NEUTROPHILS % (MANUAL) 77 % (40-74); PLATELET MORPHOLOGY COMMENT FEW LARGE; RBC MORPHOLOGY COMMENT NORMAL
[2020-02-23 08:35] LABS: PLATELET ESTIMATE SLIGHTLY INCREASED
--- NOTE | 2020-02-23 08:40 | NUR ---
decreased Fentanyl to 200mcg/hr. will continue to monitor
--- NOTE | 2020-02-23 08:58 | Progress Note ---
DATE: Pulmonary Critical Care Progress Note SUBJECTIVE: The patient is now on 8 mg of Versed and 225 of fentanyl. Currently, his breathing is synchronized well with the ventilator. His respiratory rate is set at 24 and his tidal volume was 400. The PEEP is set at 8 and his FiO2 is set at 40%. He is receiving enteral feedings. PHYSICAL EXAMINATION: VITAL SIGNS: The blood pressure is 145/80 and the respiratory rate is 24. The pulse is 54. CARDIAC: Reveals regular rate and rhythm with normal S1, S2. LUNGS: Auscultation of lungs reveals clear breath sounds bilaterally. There are some crackles at the bases. ABDOMEN: Soft and nontender. There is no rebound or guarding. There is a PICC line in place. He also has an arterial line. There is no leg edema. LABORATORY DATA: The BUN to creatinine ratio is 18 to 0.67. The other electrolytes within normal limits. The AST is 45 and the ALT is 65. The albumin is 2.4. RADIOGRAPHIC DATA: Chest x-ray shows bilateral airspace opacities. IMPRESSION: 1. Acute respiratory failure. 2. Viral pneumonia and COVID-19 infection. 3. Anemia. 4. Improving leukocytosis. PLAN: 1. Continue mechanical ventilation and repeat ABG. 2. Continue dexamethasone. 3. Wean sedation as tolerated. 4. Continue Lovenox. 5. The patient has specialty bed to prevent decubitus ulcers. 6. Case discussed with the rn night nursing, dayshift nursing, Respiratory, Infectious Disease, family, and administration. Greater than 35 minutes in direct critical care time. Andi Ventura MD Lucy/ARNAV /[id number]
--- NOTE | 2020-02-23 12:19 | NUR ---
IM- progress note O/N see below ROS: no dizziness/confusion'/vision changes/leg pain/backpain/focal limb weakness/cp. v/s; revd PE tired appearing anicteric ns1s2 COARSE BS soft nt nd no e/t skin dry flat affect a&ox3; labs/meds revd A/P: 40yoM Sepsis- IV abx; IVF as needed Multifocal PNA- IV abx; COVID19 test Acute Resp failure- HiFlo Transaminitis- f/u repeat HYponatremia- mild; f/u Obesity- screen for DM BMI 34.3- as above Hyperglycemia- as above Prop: scd Dispo; IV abx; IVF; f/u COVID19 testing 6- COVID19 infection- supportive care; Acute Respiratory Failure- HiFlo. Low threshold for intubation. Intubated; moved to ICU; cct>35mins. 6-14 remains intubated; high PEEP; appears more stable; rec'd fluids overnight for hypotension; no pressors started; does have Sepsis. cct>35mins 6-15 remains vented; PEEP and O2 needs falling; cont care; 6-16 Treatment with Remdesivir; cont vent support; -17 cont care; remains intubated; on 14PEEP; f/u CXR; continue directed therapy. -18 CXR no changes; Reduced PEEP; reduced O2 needs to 55%; stable; cont current care; 02-21 accepted at [facility]- [facility] transfer; continue supportive care; 6- cont care. start lovenox BID Stephen Jiang MD, PHD.
--- NOTE | 2020-02-23 16:43 | NUR ---
propofol @ 15mcg/kg/min, versed @ 5mg/hr and fentanyl @ 125mcg/hr. attempting to wean off versed and fentanyl. will continue to monitor
--- NOTE | 2020-02-23 17:04 | Progress Note ---
DATE: SUBJECTIVE: Mr. Mckeon remains in intensive care unit. OBJECTIVE: VITAL SIGNS: Stable, afebrile, temperature 97.4, heart rate of 60, blood pressure 128/80. He remains on the ventilator. 8 mg of Versed, 225 fentanyl. On a ventilator, respiratory rate is 24, tidal volume 400, PEEP 8, and FiO2 with 40%. HEENT: Normocephalic. NECK: Supple. CHEST: Crackles bilateral. COR: S1 and S2. ABDOMEN: Soft. Bowel sounds present. EXTREMITIES: No edema. ASSESSMENT AND PLAN: The patient is currently on Reglan, vitamin C, zinc, and dexamethasone, which was started on 02/19 to finish on 03/01, off antibiotic. Continue supportive care as ordered. Discussed with the medical team. MD CINDY Johnston/MODL /[id number]
--- NOTE | 2020-02-23 18:06 | NUR ---
increased propofol to 30mcg and decreased fentanyl to 50mcg. will continue to monitor
--- NOTE | 2020-02-23 18:45 | NUR ---
Report received. Assumed care. Assessment done. See interventions. Orally intubated with 8.0 FR ETT secured at 23cm at the lip. Vent settings: TV 400, PRVC 28, FIO2 40% & PEEP 8cm. NGT to Jenny greene with Vital HP @ 55ml/hr. IV sedation with Propofol and Precedex. Addendum: 02/23/20 at 2007 by Elis Sylvester RN PRVC was 24 not 28
[2020-02-23] MEDS: DEXMEDETOMIDINE 200MCG/NS 50ML 50 ML IV PRN (19:00)
--- NOTE | 2020-02-23 19:40 | NUR ---
ABG results given to Dr. Darryl Ventura. Orders given.
--- NOTE | 2020-02-23 20:33 | NUR ---
Decreased PRVC to 22.
[2020-02-23 20:46] LABS: ABG HCO3 28 mmol/L (22-26); ABG PCO2 39 mmHg (35-45); ABG PH 7.46 (7.35-7.45); ABG PO2 94 mmHg (80-105)
[2020-02-24] VITALS (22 sets, daily range): BP systolic 133–192; BP diastolic 75–100
[2020-02-24] MEDS: DEXMEDETOMIDINE 200MCG/NS 50ML 50 ML IV PRN ×3 (00:50→15:00)
[2020-02-24] MEDS: PROPOFOL IV EMULSION 10 MG/ML 50 ML VIAL IV SCH ×2 (00:50→04:10)
[2020-02-24] MEDS: FENTANYL 2000MCG/NS 250 250 ML IV PRN (01:30)
[2020-02-24] MEDS: ACETAMINOPHEN 325 MG TAB PO PRN ×2 (04:55→14:58)
[2020-02-24] MEDS: DEXAMETHASONE SOD PHOS 10 MG/1 ML VIAL IV SCH (05:05)
[2020-02-24] MEDS: METOCLOPRAMIDE HCL 10 MG/2ML VIAL IV SCH ×3 (05:05→18:00)
[2020-02-24 05:29] LABS: BASOPHILS # (AUTO) 0.1 (0.0-0.1); BASOPHILS % 0.4 % (0.0-1.0); EOSINOPHILS % 0.1 % (0.0-6.0); HEMATOCRIT 42.7 % (38.2-49.6); HEMOGLOBIN 13.7 g/dL (14.0-18.0); LYMPHOCYTES # (AUTO) 1.7 (1.0-3.2); LYMPHOCYTES % 9.9 % (18.0-39.1); MEAN CORPUSCULAR HEMOGLOBIN 26.4 pg (28-32); MEAN CORPUSCULAR HGB CONC 32.1 g/dL (31-35); MEAN CORPUSCULAR VOLUME 82.4 fL (81-99); MONOCYTES # (AUTO) 1.3 (0.2-0.8); MONOCYTES % 7.3 % (4.4-11.3); NEUTROPHILS % 73.8 % (38.7-80.0); PLATELET COUNT 546 x10e3/uL (140-360); RED BLOOD COUNT 5.18 x10e6/uL (4.3-5.7); RED CELL DISTRIBUTION WIDTH 13.3 % (11.7-14.4)
[2020-02-24 05:48] LABS: ALBUMIN 2.8 g/dL (3.5-5.0); BILIRUBIN,DIRECT 0.2 mg/dL (0.0-0.5)
[2020-02-24 06:08] LABS: ALANINE AMINOTRANSFERASE 126 IU/L (0-55); ALBUMIN 2.8 g/dL (3.5-5.0); ALBUMIN/GLOBULIN RATIO 0.6 (0.8-2.0); ALKALINE PHOSPHATASE 78 IU/L (40-150); ANION GAP 12.4 mmol/L (8-16); BLOOD UREA NITROGEN 21 mg/dL (7-26); BUN/CREATININE RATIO 27 (6-25); CALCIUM 8.4 mg/dL (8.4-10.2); CARBON DIOXIDE 27 mmol/L (22-29); CHLORIDE 104 mmol/L (98-107); CREATININE, SERUM 0.78 mg/dL (0.72-1.25); EST GLOMERULAR FILTRATION RATE > 60 ML/MIN (60-); GLUCOSE 169 mg/dL (74-118); POTASSIUM 4.4 mmol/L (3.5-5.1); SODIUM 139 mmol/L (136-145)
[2020-02-24 06:21] LABS: MAGNESIUM 2.3 MG/DL (1.3-2.1); PHOSPHORUS 3.9 MG/DL (2.3-4.7)
--- NOTE | 2020-02-24 07:44 | Diagnostic Imaging Report ---
EXAMINATION: CHEST SINGLE (PORTABLE) COMPARISON: Chest x-ray 02/23/2020 INDICATION: Intubated, COVID positive ^resp failure ^[id number] ^[id number] DISCUSSION: Frontal view of the chest obtained at 0558 hours. HEART AND MEDIASTINUM: The heart is top normal in size but stable LINES: Endotracheal tube terminates at the judy. Enteric tube extends past the diaphragm. Left PICC line terminates in the SVC LUNGS/PLEURA: Mildly improved aeration. Multifocal alveolar airspace opacities are grossly stable. No pleural effusion or pneumothorax. BONES AND SOFT TISSUES: Unremarkable. IMPRESSION: 1. Support devices as described above. 2. No significant change in pulmonary infiltrates consistent with history of atypical pneumonia. Signed by: Dr. Bobby Clayton MD on 02/24/2020 7:40 AM
[2020-02-24] MEDS ORDERED: LINEZOLID 600 MG/D5W 300ML 300 ML IV SCH (07:45)
[2020-02-24 08:19] LABS: LYMPHOCYTES % (MANUAL) 14 % (19-48); MONOCYTES % (MANUAL) 6 % (3.4-9.0); NEUTROPHILS % (MANUAL) 80 % (40-74); PLATELET MORPHOLOGY COMMENT FEW LARGE; RBC MORPHOLOGY COMMENT NORMAL
[2020-02-24 08:21] LABS: PLATELET ESTIMATE MODERATELY INCREASED
[2020-02-24] MEDS: ASCORBIC ACID 500 MG TAB PO SCH ×2 (09:00→17:00)
[2020-02-24] MEDS: ZINC SULFATE 220 MG CAP PO SCH (09:00)
[2020-02-24] MEDS: EYE LUBRICANT OPTH OINT 3.5GM TUBE OP SCH (09:00)
[2020-02-24 09:18] LABS: CLARITY,URINE CLEAR (CLEAR); COLOR,URINE YELLOW (YELLOW)
[2020-02-24 09:19] LABS: BILIRUBIN,URINE NEGATIVE (NEGATIVE); KETONES,URINE NEGATIVE (NEGATIVE); LEUKOCYTE ESTERASE ,URINE NEGATIVE (NEGATIVE); NITRITE,URINE NEGATIVE (NEGATIVE); PROTEIN,URINE DIPSTICK NEGATIVE (NEGATIVE); URINE UROBILINOGEN 4 mg/dL (0.2 - 1)
[2020-02-24 09:23] LABS: BACTERIA,URINE FEW /HPF; EPITHELIAL CELLS,URINE FEW /LPF; RBC,URINE 0-5 /HPF (0-5); WBC,URINE (MAN) 0-5 /HPF (0-5)
--- NOTE | 2020-02-24 10:01 | Progress Note ---
DATE: SUBJECTIVE: The patient decreased to a FiO2 of 40% and a PEEP of 8. He has been weaned off the Versed and fentanyl, and is on propofol and Precedex. This morning, he was switched to a pressure support of 8 with a CPAP of 5. He is breathing about 20 times a minute with tidal volumes of 500 mL. He did have some fever to 100.7 yesterday. PHYSICAL EXAMINATION: VITAL SIGNS: The blood pressure is 147/81, saturation is 96%, and the pulse is 70. Respiratory rate is 20. He is on CPAP of 5 and a pressure support of 8. HEENT: Shows no facial swelling or erythema. CARDIAC: Reveals regular rate and rhythm with normal S1 and S2. LUNGS: Auscultation of lungs reveals rhonchorous breath sounds bilaterally. There is no wheezing. ABDOMEN: Soft and nontender. There is no rebound or guarding. EXTREMITIES: Shows no leg edema or calf tenderness. There is no cyanosis or clubbing. SKIN: Shows no rashes. NEUROLOGICAL: Shows the patient to be sedated, but when the sedation is stopped, he is easily arousable. LABORATORY DATA: White blood cell count is 17.5 and the hemoglobin is 13.7. The platelet count is 546. The BUN to creatinine ratio is 21 to 0.78 and the glucose is 169. AST is 126 and the ALT is 59. Albumin is 2.8. RADIOGRAPHIC DATA: The patient has unchanged bilateral pulmonary infiltrates. IMPRESSION: 1. Acute respiratory failure. 2. Viral pneumonia and COVID-19 infection. 3. Superimposed bacterial infection. 4. Anemia. 5. Sedation intolerance. PLAN: 1. Continue spontaneous breathing trial and repeat ABG. Goal is for extubation. 2. Continue dexamethasone. 3. Continue Lovenox. 4. The patient is started on antibiotics for possible bacterial superinfection. 5. Continue specialty bed to prevent decubitus ulcers. 6. Case discussed with night coordinator nursing, day shift nursing, Respiratory, Infectious Disease, and family. Greater than 35 minutes in direct critical care time. Andi Ventura MD LM/ARNAV /[id number]
[2020-02-24] MEDS: MEROPENEM 1GM 100 ML IV SCH ×2 (14:30→21:48)
[2020-02-24] MEDS ORDERED: SODIUM CHLORIDE 0.9% 250ML 250 ML ONE (14:48)
--- NOTE | 2020-02-24 14:54 | NUR ---
IM- progress note O/N see below ROS: no dizziness/confusion'/vision changes/leg pain/backpain/focal limb weakness/cp. v/s; revd PE tired appearing anicteric ns1s2 COARSE BS soft nt nd no e/t skin dry flat affect a&ox3; labs/meds revd A/P: 40yoM Sepsis- IV abx; IVF as needed Multifocal PNA- IV abx; COVID19 test Acute Resp failure- HiFlo Transaminitis- f/u repeat HYponatremia- mild; f/u Obesity- screen for DM BMI 34.3- as above Hyperglycemia- as above Prop: scd Dispo; IV abx; IVF; f/u COVID19 testing - COVID19 infection- supportive care; Acute Respiratory Failure- HiFlo. Low threshold for intubation. Intubated; moved to ICU; cct>35mins. 6-14 remains intubated; high PEEP; appears more stable; rec'd fluids overnight for hypotension; no pressors started; does have Sepsis. cct>35mins 6-15 remains vented; PEEP and O2 needs falling; cont care; 6-16 Treatment with Remdesivir; cont vent support; -17 cont care; remains intubated; on 14PEEP; f/u CXR; continue directed therapy. -18 CXR no changes; Reduced PEEP; reduced O2 needs to 55%; stable; cont current care; 02-21 accepted at [facility]- [facility] transfer; continue supportive care; - cont care. start lovenox BID - check ferritin; extubated; awake and alert; Stephen Jiang MD, PHD.
--- NOTE | 2020-02-24 15:38 | Progress Note ---
DATE: SUBJECTIVE: Mr. Mckeon is on Zyvox and meropenem. So far, he is doing good. He was extubated today. His is alert and oriented. PHYSICAL EXAMINATION: GENERAL: He is currently alert, oriented. VITAL SIGNS: Stable, currently afebrile. HEENT: He is not icteric. NECK: Supple. CHEST: Clear. HEART: S1, S2. No murmurs. ABDOMEN: Soft. IMPRESSION: Respiratory failure resolved, extubated, status post coronavirus disease-19, status post bacterial pneumonia, anemia. Continue supportive care to finish seven days of the current choice of antibiotic, diabetic control. We will discontinue antibiotic tomorrow. He is on dexamethasone. We will discontinue on the . We will follow. MD CINDY Johnston/MODL /[id number]
[2020-02-24] MEDS: ENOXAPARIN SOD INJ 40 MG/0.4 ML SYR SC SCH (20:42)
[2020-02-24] MEDS: LINEZOLID 600 MG/D5W 300ML 300 ML IV SCH (20:42)
[2020-02-25] VITALS (22 sets, daily range): BP systolic 111–147; BP diastolic 61–110
[2020-02-25] MEDS: METOCLOPRAMIDE HCL 10 MG/2ML VIAL IV SCH ×4 (00:15→17:17)
[2020-02-25 05:07] LABS: BASOPHILS # (AUTO) 0.1 (0.0-0.1); BASOPHILS % 0.2 % (0.0-1.0); EOSINOPHILS # (AUTO) 0.1 (0.0-0.4); EOSINOPHILS % 0.6 % (0.0-6.0); HEMATOCRIT 39.8 % (38.2-49.6); HEMOGLOBIN 12.8 g/dL (14.0-18.0); LYMPHOCYTES # (AUTO) 2.8 (1.0-3.2); LYMPHOCYTES % 13.3 % (18.0-39.1); MEAN CORPUSCULAR HEMOGLOBIN 26.8 pg (28-32); MEAN CORPUSCULAR HGB CONC 32.2 g/dL (31-35); MEAN CORPUSCULAR VOLUME 83.3 fL (81-99); MONOCYTES # (AUTO) 1.2 (0.2-0.8); MONOCYTES % 5.6 % (4.4-11.3); NEUTROPHILS # (AUTO) 16.3 (2.1-6.9); NEUTROPHILS % 76.4 % (38.7-80.0); PLATELET COUNT 496 x10e3/uL (140-360); RED BLOOD COUNT 4.78 x10e6/uL (4.3-5.7); RED CELL DISTRIBUTION WIDTH 13.2 % (11.7-14.4)
[2020-02-25 05:37] LABS: ALANINE AMINOTRANSFERASE 171 IU/L (0-55); ALBUMIN/GLOBULIN RATIO 0.8 (0.8-2.0); ALKALINE PHOSPHATASE 73 IU/L (40-150); ANION GAP 12.2 mmol/L (8-16); BLOOD UREA NITROGEN 20 mg/dL (7-26); BUN/CREATININE RATIO 29 (6-25); CALCIUM 8.5 mg/dL (8.4-10.2); CARBON DIOXIDE 28 mmol/L (22-29); CHLORIDE 97 mmol/L (98-107); CREATININE, SERUM 0.68 mg/dL (0.72-1.25); EST GLOMERULAR FILTRATION RATE > 60 ML/MIN (60-); GLUCOSE 114 mg/dL (74-118); POTASSIUM 3.2 mmol/L (3.5-5.1); SODIUM 134 mmol/L (136-145)
[2020-02-25] MEDS: DEXAMETHASONE SOD PHOS 10 MG/1 ML VIAL IV SCH (05:51)
[2020-02-25] MEDS: MEROPENEM 1GM 100 ML IV SCH ×2 (05:51→13:07)
[2020-02-25 07:24] LABS: ALBUMIN 2.9 g/dL (3.5-5.0); BILIRUBIN,DIRECT 0.4 mg/dL (0.0-0.5)
[2020-02-25] MEDS: EYE LUBRICANT OPTH OINT 3.5GM TUBE OP SCH (08:13)
[2020-02-25] MEDS: ENOXAPARIN SOD INJ 40 MG/0.4 ML SYR SC SCH ×2 (08:13→22:15)
[2020-02-25] MEDS: ASCORBIC ACID 500 MG TAB PO SCH ×2 (08:13→17:17)
[2020-02-25] MEDS: ZINC SULFATE 220 MG CAP PO SCH (08:13)
[2020-02-25] MEDS: LINEZOLID 600 MG/D5W 300ML 300 ML IV SCH (08:13)
--- NOTE | 2020-02-25 09:00 | Diagnostic Imaging Report ---
X-ray chest AP portable Comparison: 02/24/2020 History: Covid. Status post extubation Findings: The endotracheal tube has been removed. Nasogastric tube is unchanged. A left arm route PICC line unchanged. No pleural effusion or pneumothorax. Bilateral lung infiltrates show slight improvement especially noticeable in the left lung. No other acute cardiopulmonary changes. No other acute changes. Impression: Slight improvement of the lung infiltrates. Signed by: Andres Radford MD on 02/25/2020 8:57 AM
[2020-02-25] MEDS ORDERED: POTASSIUM CHLORIDE 20MEQ/15ML UDC NG ONE (09:10)
--- NOTE | 2020-02-25 10:45 | NUR ---
ST NOTE: BSE order acknowledged. Pt intubated for 20 days, extubated 02/24/20 at 1043. Pt typneic this AM, will complete BSE after 48 hours post extubation as recommended in literature for reduced swelling and best results for successful swallow function. Handoff to PAM [place]
[2020-02-25 10:47] LABS: ABG HCO3 25 mmol/L (22-26); ABG PCO2 33 mmHg (35-45); ABG PH 7.49 (7.35-7.45); ABG PO2 80 mmHg (80-105)
--- NOTE | 2020-02-25 12:42 | Progress Note ---
DATE: SUBJECTIVE: The patient was extubated yesterday. He remains on a nasal cannula at 6 L. He still has some agitation and needs Precedex intermittently. He has no nausea or vomiting. PHYSICAL EXAMINATION: VITAL SIGNS: The blood pressure is 134/74 and saturation is 98% on 6 L. HEENT: Shows no facial swelling or erythema. There is a nasogastric tube in place. There is an arterial line in place. There is a PICC line. CARDIAC: Reveals regular rate and rhythm with normal S1 and S2. LUNGS: Auscultation of lungs reveals decreased breath sounds at the bases. ABDOMEN: Soft and nontender. There is no rebound or guarding. EXTREMITIES: Shows no leg edema or calf tenderness. There is no cyanosis or clubbing. SKIN: Shows no rashes. NEUROLOGICAL: Shows no focal abnormalities. RADIOGRAPHIC DATA: Chest x-ray shows slight improvement in the infiltrates bilaterally. LABORATORY DATA: White blood cell count is 21.3 and the hemoglobin is 12.8. The platelet count is 496. The BUN to creatinine ratio is normal. The potassium is 3.2 and the other electrolytes within normal limits. The ALT is 171 and the AST is 93. The albumin is 3. IMPRESSION: 1. Acute respiratory failure. 2. Viral pneumonia and COVID-19 infection. 3. Superimposed bacterial pneumonia. 4. Anemia. PLAN: 1. Continue to wean oxygen as tolerated. 2. Continue dexamethasone. 3. Continue Lovenox. 4. Complete antibiotics. 5. Physical therapy to re-evaluate the patient. Andi Ventura MD [facility]/MODL /[id number]
[2020-02-25] MEDS ORDERED: QUETIAPINE FUMARATE 25 MG TAB PO SCH (12:45)
--- NOTE | 2020-02-25 14:12 | NUR ---
ORDERS FOR LTAC EVAL CM SPOKE WITH PT'S CATRACHITO DE LA CRUZ WITH A [employer] [phone] CHOICE LETTER SIGNED AND PUT ON CHART FOR [facility] CLINICAL INFORMATION FAXED TO [employer] AT [phone] CONFIRMATION REC'D
--- NOTE | 2020-02-25 15:07 | NUR ---
IM- progress note O/N see below ROS: no dizziness/confusion'/vision changes/leg pain/backpain/focal limb weakness/cp. v/s; revd PE tired appearing anicteric ns1s2 COARSE BS soft nt nd no e/t skin dry flat affect a&ox3; labs/meds revd A/P: 40yoM Sepsis- IV abx; IVF as needed Multifocal PNA- IV abx; COVID19 test Acute Resp failure- HiFlo Transaminitis- f/u repeat HYponatremia- mild; f/u Obesity- screen for DM BMI 34.3- as above Hyperglycemia- as above Prop: scd Dispo; IV abx; IVF; f/u COVID19 testing - COVID19 infection- supportive care; Acute Respiratory Failure- HiFlo. Low threshold for intubation. Intubated; moved to ICU; cct>35mins. - remains intubated; high PEEP; appears more stable; rec'd fluids overnight for hypotension; no pressors started; does have Sepsis. cct>35mins 15 remains vented; PEEP and O2 needs falling; cont care; -16 Treatment with Remdesivir; cont vent support; - cont care; remains intubated; on 14PEEP; f/u CXR; continue directed therapy. 02-20 CXR no changes; Reduced PEEP; reduced O2 needs to 55%; stable; cont current care; 02-21 accepted at [facility] transfer; continue supportive care; - cont care. start lovenox BID 02-23 check ferritin; extubated; awake and alert; PT and swallow eval - cont care out of ICU; Stephen Jiang MD, PHD.
--- NOTE | 2020-02-25 17:14 | NUR ---
Nutrition Intervention Note RD Recommendation(s) for Physician: -Recommend continuing Vital High Protein @ goal rate of 55 mL/hr (provides 1320 kcal, 116 g protein, and 1104 mL water) until bedside swallow study can be completed - If PO diet is feasible, recommend regular diet with texture modification per speech therapy -Water flushes and fluid management per MD Plan of Care: RD following, monitoring for tolerance and adequacy Nutrition reason for involvement: follow up RD Assessment 02/24: Follow up. Pt was extubated yesterday. Speech therapy bedside swallow evaluation is pending. Pt is tolerating tube feeding at goal rate per RN. Will continue to monitor. 02/20: Follow up. Pt remains intubated and sedated with Versed, Propofol discontinued. Pt remains on Glucerna 1.2 TF, infusing at 50 ml/hr this am. Pt discussed during MDR- TF rec's reiterated. Current TF rec's remain appropriate to better meet protein needs on vent and provide marine oil for inflammation as well as immune support. Will continue to monitor. (02/18/20) Pt is a 40 year old male admitted with fever and multifocal pneumonia. Pt is COVID-19+ and is currently intubated. Pt was started on tube feeding. Recommendations provided. RN reports pt is currently receiving 3.4 mL/hr of propofol which provides 90 kcal. There are no previous weights in chart. Will continue to monitor. Principal Problems/Diagnoses: fever and multifocal pneumonia PMH: obesity GI: soft, non-tender, round abdomen, last recorded BM 02/15, flatus present Skin: intact Labs: 02/24: Na 134, K 3.2, BUN 20, Cr 0.68, Glu 114, AST 93, ALT 171 02/20: Na 139, K 4.4, BUN 18, Cr 0.76, Gluc 139, Ca 7.9, Phos 3.5, Mg 2.2 (02/17) Na 138, BUN 13, Cr 0.76, Glu 94, HgbA1c 6.0, Ca 7.9, AST 81. ALT 62 Meds: antibiotic, reglan, lovenox, vitamin C, zinc sulfate, dexmethasone, Ht: 64 inches Wt: 213 lbs (02/23) 218 lbs (02/17) BMI: 36.6 kg/m2 IBW: 130 lbs Malnutrition Evaluation (02/18/20) Unable to assess. Will re-evaluate at follow-up as appropriate. Nutrition Prescription (Diet Order): Vital High Protein @ 55 mL/hr Estimated Nutritional Needs: 3683-0356 calories/day (22-25 kcal/kg IBW) 89-118 g protein/day (1.5-2 g pro/kg IBW) Diet Adequacy: Meeting calorie needs, meeting protein needs Tolerance: Tolerating TF Diet Education Needs Assessment: Diet education not indicated, patient on temporary/transition diet. Nutrition Care Level: moderate Nutrition Diagnosis: Inadequate oral intake related to respiratory failure/mechanical ventilation as evidenced by need for enteral nutrition Goal: Patient will meet 75-100% of estimated needs by follow up Progress: progressing Interventions: -Composition, Rate, Route, Collaboration with other providers, general-healthy diet Monitoring/Evaluation: -Total energy intake, Total protein intake, Formula/Solution, Weight change Signed: Ivelisse Marquez RD, LD
--- NOTE | 2020-02-25 18:19 | Progress Note ---
DATE: SUBJECTIVE: Mr. Mckeon is doing better. He is on 4 L. Remains in intensive care unit. PHYSICAL EXAMINATION: GENERAL: He is currently alert and oriented. VITAL SIGNS: Stable, currently afebrile. HEENT: Not icteric. NECK: Supple. CHEST: Clear. HEART: S1 and S2. No S3, S4, or murmur. ABDOMEN: Soft. IMPRESSION: COVID-19 on admission, superimposed bacterial pneumonia, anemia, and respiratory failure. Overall, the patient is improving. Continue with PT/OT. Continue supportive care. We will discontinue his antibiotic. Continue PT/OT as ordered. To finish 10 days of dexamethasone, which could be given oral. We will follow. Luz Elena Horne MD [facility]/MODL /[id number]
[2020-02-26] VITALS (7 sets, daily range): BP systolic 111–152; BP diastolic 68–80
[2020-02-26] MEDS: METOCLOPRAMIDE HCL 10 MG/2ML VIAL IV SCH ×4 (00:15→17:47)
[2020-02-26 06:27] LABS: BASOPHILS % 0.2 % (0.0-1.0); EOSINOPHILS # (AUTO) 0.2 (0.0-0.4); EOSINOPHILS % 0.8 % (0.0-6.0); HEMATOCRIT 39.4 % (38.2-49.6); HEMOGLOBIN 12.8 g/dL (14.0-18.0); LYMPHOCYTES % 13.5 % (18.0-39.1); MEAN CORPUSCULAR HEMOGLOBIN 27.1 pg (28-32); MEAN CORPUSCULAR HGB CONC 32.5 g/dL (31-35); MEAN CORPUSCULAR VOLUME 83.5 fL (81-99); MONOCYTES # (AUTO) 1.5 (0.2-0.8); MONOCYTES % 6.5 % (4.4-11.3); NEUTROPHILS # (AUTO) 17.1 (2.1-6.9); NEUTROPHILS % 76.3 % (38.7-80.0); PLATELET COUNT 556 x10e3/uL (140-360); RED BLOOD COUNT 4.72 x10e6/uL (4.3-5.7); RED CELL DISTRIBUTION WIDTH 13.7 % (11.7-14.4)
[2020-02-26] MEDS: DEXAMETHASONE SOD PHOS 10 MG/1 ML VIAL IV SCH (06:34)
[2020-02-26 06:56] LABS: ALANINE AMINOTRANSFERASE 142 IU/L (0-55); ALBUMIN 3.2 g/dL (3.5-5.0); ALBUMIN/GLOBULIN RATIO 0.8 (0.8-2.0); ALKALINE PHOSPHATASE 73 IU/L (40-150); ANION GAP 14.7 mmol/L (8-16); BLOOD UREA NITROGEN 22 mg/dL (7-26); BUN/CREATININE RATIO 31 (6-25); CALCIUM 8.9 mg/dL (8.4-10.2); CARBON DIOXIDE 28 mmol/L (22-29); CHLORIDE 100 mmol/L (98-107); CREATININE, SERUM 0.72 mg/dL (0.72-1.25); EST GLOMERULAR FILTRATION RATE > 60 ML/MIN (60-); GLUCOSE 123 mg/dL (74-118); POTASSIUM 3.7 mmol/L (3.5-5.1); SODIUM 139 mmol/L (136-145)
[2020-02-26 07:08] LABS: MAGNESIUM 2.3 MG/DL (1.3-2.1); PHOSPHORUS 5.1 MG/DL (2.3-4.7)
[2020-02-26 07:13] LABS: ALBUMIN 3.2 g/dL (3.5-5.0); BILIRUBIN,DIRECT 0.4 mg/dL (0.0-0.5)
[2020-02-26] MEDS: ZINC SULFATE 220 MG CAP PO SCH (08:53)
[2020-02-26] MEDS: ASCORBIC ACID 500 MG TAB PO SCH ×2 (08:53→16:29)
[2020-02-26] MEDS: ENOXAPARIN SOD INJ 40 MG/0.4 ML SYR SC SCH ×2 (08:53→20:51)
[2020-02-26] MEDS: EYE LUBRICANT OPTH OINT 3.5GM TUBE OP SCH (08:53)
--- NOTE | 2020-02-26 13:32 | Progress Note ---
DATE: SUBJECTIVE: The patient is out of the Intensive Care Unit. He is down to 3 L of oxygen and saturating well. He is afebrile. He is being evaluated by speech pathology and appears to be swallowing well. He still has profound weakness. PHYSICAL EXAMINATION: VITAL SIGNS: Blood pressure is 152/80 and the pulse is 105. HEENT: Shows no facial swelling or erythema. CARDIAC: Reveals regular rate and rhythm with normal S1 and S2. LUNGS: Auscultation of lungs reveals crackles at the bases. There is no wheezing. ABDOMEN: Soft and nontender. There is no rebound or guarding. EXTREMITIES: Shows no leg edema or calf tenderness. LABORATORY DATA: BUN to creatinine ratio is normal. Electrolytes are within normal limits. The ALT is 142 and the AST is 45. The albumin is 3.2. White blood cell count is 22.4 and hemoglobin is 12.8. The platelet count is 556. IMPRESSION: 1. Acute respiratory failure that is improving. 2. Viral pneumonia and COVID-19 infection. 3. Anemia, unspecified. 4. Myopathy of critical illness. PLAN: 1. Continue physical therapy. 2. Out of bed as tolerated. 3. Wean oxygen. 4. Discontinue Mckinley. 5. Complete dexamethasone. MD CHRISTY Soler/YULIYAL /[id number]
--- NOTE | 2020-02-26 14:29 | NUR ---
IM- progress note O/N see below ROS: no dizziness/confusion'/vision changes/leg pain/backpain/focal limb weakness/cp. v/s; revd PE tired appearing anicteric ns1s2 COARSE BS soft nt nd no e/t skin dry flat affect a&ox3; labs/meds revd A/P: 40yoM Sepsis- IV abx; IVF as needed Multifocal PNA- IV abx; COVID19 test Acute Resp failure- HiFlo Transaminitis- f/u repeat HYponatremia- mild; f/u Obesity- screen for DM BMI 34.3- as above Hyperglycemia- as above Prop: scd Dispo; IV abx; IVF; f/u COVID19 testing - COVID19 infection- supportive care; Acute Respiratory Failure- HiFlo. Low threshold for intubation. Intubated; moved to ICU; cct>35mins. - remains intubated; high PEEP; appears more stable; rec'd fluids overnight for hypotension; no pressors started; does have Sepsis. cct>35mins 15 remains vented; PEEP and O2 needs falling; cont care; -16 Treatment with Remdesivir; cont vent support; -17 cont care; remains intubated; on 14PEEP; f/u CXR; continue directed therapy. 02-20 CXR no changes; Reduced PEEP; reduced O2 needs to 55%; stable; cont current care; 02-21 accepted at [facility]- awa transfer; continue supportive care; - cont care. start lovenox BID 02-23 check ferritin; extubated; awake and alert; PT and swallow eval - cont care out of ICU; - Pt wants to leave AMA, encouraged to stay for continued care; still significant leukocytosis and hypoxia. Continue O2 support; f/u swallow eval; Stephen Jiang MD, PHD.
--- NOTE | 2020-02-26 15:17 | NUR ---
Spoke with Bhakti with [facility], still pending insurance auth.
--- NOTE | 2020-02-26 20:48 | Progress Note ---
DATE: SUBJECTIVE: Mr. Mckeon is feeling much better. He is down to 3 L, down to 2 L. REVIEW OF SYSTEMS: He is feeling weak, but much better. PHYSICAL EXAMINATION: GENERAL: He is currently alert and oriented. Does not seem to be in acute distress. VITAL SIGNS: Stable, afebrile. HEENT: Not icteric. NECK: Supple. CHEST: Clear. IMPRESSION: COVID-19, acute respiratory failure. The patient is doing much better. We will discharge home with oxygen. PT/OT to evaluate the patient for ambulation. MD CINDY Johnston/ARNAV /[id number]
[2020-02-27] VITALS (9 sets, daily range): BP systolic 128–174; BP diastolic 65–87
[2020-02-27 05:41] LABS: BASOPHILS # (AUTO) 0.1 (0.0-0.1); BASOPHILS % 0.3 % (0.0-1.0); EOSINOPHILS # (AUTO) 0.2 (0.0-0.4); EOSINOPHILS % 0.8 % (0.0-6.0); HEMATOCRIT 39.5 % (38.2-49.6); HEMOGLOBIN 12.7 g/dL (14.0-18.0); LYMPHOCYTES # (AUTO) 3.1 (1.0-3.2); LYMPHOCYTES % 16.3 % (18.0-39.1); MEAN CORPUSCULAR HEMOGLOBIN 26.5 pg (28-32); MEAN CORPUSCULAR HGB CONC 32.2 g/dL (31-35); MEAN CORPUSCULAR VOLUME 82.5 fL (81-99); MONOCYTES # (AUTO) 1.6 (0.2-0.8); MONOCYTES % 8.1 % (4.4-11.3); NEUTROPHILS % 72.9 % (38.7-80.0); PLATELET COUNT 591 x10e3/uL (140-360); RED BLOOD COUNT 4.79 x10e6/uL (4.3-5.7); RED CELL DISTRIBUTION WIDTH 14.1 % (11.7-14.4)
[2020-02-27 05:55] LABS: ALANINE AMINOTRANSFERASE 131 IU/L (0-55); ALBUMIN 3.5 g/dL (3.5-5.0); ALBUMIN/GLOBULIN RATIO 0.9 (0.8-2.0); ALKALINE PHOSPHATASE 75 IU/L (40-150); ANION GAP 14.7 mmol/L (8-16); BLOOD UREA NITROGEN 21 mg/dL (7-26); BUN/CREATININE RATIO 28 (6-25); CALCIUM 9.1 mg/dL (8.4-10.2); CARBON DIOXIDE 28 mmol/L (22-29); CHLORIDE 101 mmol/L (98-107); CREATININE, SERUM 0.74 mg/dL (0.72-1.25); EST GLOMERULAR FILTRATION RATE > 60 ML/MIN (60-); GLUCOSE 109 mg/dL (74-118); POTASSIUM 3.7 mmol/L (3.5-5.1); SODIUM 140 mmol/L (136-145)
[2020-02-27] MEDS: METOCLOPRAMIDE HCL 10 MG/2ML VIAL IV SCH ×5 (06:02→23:56)
[2020-02-27] MEDS: DEXAMETHASONE PHOS 4MG/ML 5ML MULTIDOSE VIAL IV SCH (06:02)
[2020-02-27 06:10] LABS: ALBUMIN 3.5 g/dL (3.5-5.0)
--- NOTE | 2020-02-27 06:55 | NUR ---
DR KAMARA CAME TO SEE PT AND ORDERED FOR LOVENOX TO BE STOPPED AND START PT ON ELIQUIS TODAY AND ALSO RESWAB PT FOR COVID19.
--- NOTE | 2020-02-27 07:13 | NUR ---
NOTIFIED ONCOMING NURSE LUIGI AND GAS SINGER PT NEEDS RESWAB FOR COVID PER ORDER.
--- NOTE | 2020-02-27 07:51 | Diagnostic Imaging Report ---
Examination: Single AP view of the chest. COMPARISON: Portable chest 02/25/2020 INDICATION: Shortness of breath, COVID IMPRESSION: 1. Lines and Tubes: Previously visualized enteric tube has been removed. 2. Area slight interval improvement in bilateral patchy interstitial and alveolar opacities, predominantly in the right lower lung. 3. Cardiomediastinal silhouette is normal. Central venous congestion. 4. No acute bony abnormalities. Signed by: Dr. Kavon Rose M.D. on 02/27/2020 7:48 AM
--- NOTE | 2020-02-27 08:26 | NUR ---
IM- progress note O/N see below ROS: no dizziness/confusion'/vision changes/leg pain/backpain/focal limb weakness/cp. v/s; revd PE tired appearing anicteric ns1s2 COARSE BS soft nt nd no e/t skin dry flat affect a&ox3; labs/meds revd A/P: 40yoM Sepsis- IV abx; IVF as needed Multifocal PNA- IV abx; COVID19 test Acute Resp failure- HiFlo Transaminitis- f/u repeat HYponatremia- mild; f/u Obesity- screen for DM BMI 34.3- as above Hyperglycemia- as above Prop: scd Dispo; IV abx; IVF; f/u COVID19 testing - COVID19 infection- supportive care; Acute Respiratory Failure- HiFlo. Low threshold for intubation. Intubated; moved to ICU; cct>35mins. - remains intubated; high PEEP; appears more stable; rec'd fluids overnight for hypotension; no pressors started; does have Sepsis. cct>35mins 15 remains vented; PEEP and O2 needs falling; cont care; 6-16 Treatment with Remdesivir; cont vent support; -17 cont care; remains intubated; on 14PEEP; f/u CXR; continue directed therapy. 02-20 CXR no changes; Reduced PEEP; reduced O2 needs to 55%; stable; cont current care; 02-21 accepted at [facility]- await transfer; continue supportive care; -20 cont care. start lovenox BID 02-23 check ferritin; extubated; awake and alert; PT and swallow eval - cont care out of ICU; - Pt wants to leave AMA, encouraged to stay for continued care; still significant leukocytosis and hypoxia. Continue O2 support; f/u swallow eval; 6- recheck of COVID19 test today; Ferritin 640- cont AC- full. LTAC eval; d/w patient; He does have about 5 children below 16yo at home, cont care. Stephen Jiang MD, PHD.
[2020-02-27] MEDS: APIXABAN 5 MG TABLET PO SCH ×2 (08:41→17:26)
[2020-02-27] MEDS: ASCORBIC ACID 500 MG TAB PO SCH ×2 (08:41→17:26)
[2020-02-27] MEDS: ZINC SULFATE 220 MG CAP PO SCH (08:41)
[2020-02-27] MEDS: EYE LUBRICANT OPTH OINT 3.5GM TUBE OP SCH (08:42)
[2020-02-27 08:45] LABS: BILIRUBIN,DIRECT 0.5 mg/dL (0.0-0.5)
[2020-02-27 11:05] LABS: EOSINOPHILS % (MANUAL) 1 % (0-7); LYMPHOCYTES % (MANUAL) 16 % (19-48); MONOCYTES % (MANUAL) 7 % (3.4-9.0); NEUTROPHILS % (MANUAL) 76 % (40-74)
[2020-02-27 11:06] LABS: PLATELET ESTIMATE SLIGHTLY INCREASED; PLATELET MORPHOLOGY COMMENT RARE EDTA CLUMPING; RBC MORPHOLOGY COMMENT NORMAL
--- NOTE | 2020-02-27 14:53 | NUR ---
Pt no longer on IV abx. Per Bhakti with [facility], would not qualify for LTAC. CM asked Dr. Jiang what plan is since pt has no criteria for LTAC at this time. States plan for home health with therapy.
--- NOTE | 2020-02-27 18:32 | Progress Note ---
DATE: SUBJECTIVE: The patient is feeling better. He is still weak. He is walking with physical therapy with a walker. He has no fever. He is not complaining of nausea or vomiting. PHYSICAL EXAMINATION: VITAL SIGNS: The patient is afebrile. The blood pressure is 131/77, and saturation is 98% on 2 L. HEENT: No facial swelling or erythema. CARDIAC: Regular rate and rhythm with normal S1, S2. LUNGS: Auscultation of lungs reveals rhonchorous breath sounds bilaterally. There is no wheezing. ABDOMEN: Soft, nontender. There is no rebound or guarding. EXTREMITIES: No leg edema or calf tenderness. There is no cyanosis or clubbing. SKIN: No rashes. LABORATORY DATA: White blood cell count is 19.2 and hemoglobin is 12.7. The platelet count is 591. BUN to creatinine ratio is normal. The AST is 41 and the ALT is 131. Other electrolytes are within normal limits. RADIOGRAPHIC DATA: Chest x-ray shows some improvement in bilateral infiltrates. IMPRESSION: 1. Acute respiratory failure. 2. Viral pneumonia and coronavirus disease-19 infection. 3. Anemia. PLAN: 1. Continue physical therapy. 2. Wean oxygen. 3. Possible discharge home within the next several days. MD CHRISTY Soler/ARNAV /[id number]
--- NOTE | 2020-02-27 18:51 | NUR ---
Report to PAM Whalen
--- NOTE | 2020-02-27 20:01 | NUR ---
Resumed care of patient. Patient awake and resting quietly in bed, denying needs, no s/s of distress at this time. Bed locked and in lowest position, call light placed within reach. Will continue to monitor.
--- NOTE | 2020-02-27 21:09 | Progress Note ---
DATE: SUBJECTIVE: Mr. Mckeon is improving. PHYSICAL EXAMINATION: GENERAL: He is currently alert, oriented, does not seem to be in acute distress. VITAL SIGNS: Stable, currently afebrile. HEENT: He is not icteric. NECK: Supple. CHEST: Clear. HEART: S1, S2. ABDOMEN: Soft. IMPRESSION: Coronavirus disease-19, improving. PLAN: 1. Continue PT, OT. 2. Can be discharged home with albuterol as needed. 3. Push p.o. fluid and rest. MD CINDY Johnston/MODL /[id number]
[2020-02-28] VITALS: BP 141/75
--- NOTE | 2020-02-28 00:55 | NUR ---
Patient ambulated to restroom with walker and standby assistance. O2 96% on room air. Tolerated well. Will continue to monitor.
[2020-02-28 04:00] VITALS: BP 120/77
[2020-02-28 05:22] LABS: BASOPHILS % 0.2 % (0.0-1.0); EOSINOPHILS # (AUTO) 0.2 (0.0-0.4); EOSINOPHILS % 1.3 % (0.0-6.0); HEMATOCRIT 38.4 % (38.2-49.6); LYMPHOCYTES # (AUTO) 2.5 (1.0-3.2); LYMPHOCYTES % 15.7 % (18.0-39.1); MEAN CORPUSCULAR HEMOGLOBIN 26.6 pg (28-32); MEAN CORPUSCULAR HGB CONC 31.3 g/dL (31-35); MEAN CORPUSCULAR VOLUME 85.1 fL (81-99); MONOCYTES # (AUTO) 1.4 (0.2-0.8); MONOCYTES % 8.6 % (4.4-11.3); NEUTROPHILS # (AUTO) 11.4 (2.1-6.9); NEUTROPHILS % 72.9 % (38.7-80.0); PLATELET COUNT 581 x10e3/uL (140-360); RED BLOOD COUNT 4.51 x10e6/uL (4.3-5.7); RED CELL DISTRIBUTION WIDTH 14.1 % (11.7-14.4)
[2020-02-28 05:59] LABS: BILIRUBIN,DIRECT 0.6 mg/dL (0.0-0.5)
[2020-02-28] MEDS: METOCLOPRAMIDE HCL 10 MG/2ML VIAL IV SCH ×2 (06:18→12:18)
[2020-02-28] MEDS: DEXAMETHASONE PHOS 4MG/ML 5ML MULTIDOSE VIAL IV SCH (06:18)
[2020-02-28 07:22] LABS: ALANINE AMINOTRANSFERASE 115 IU/L (0-55); ALBUMIN 3.4 g/dL (3.5-5.0); ALKALINE PHOSPHATASE 78 IU/L (40-150); ANION GAP 14.1 mmol/L (8-16); BLOOD UREA NITROGEN 18 mg/dL (7-26); BUN/CREATININE RATIO 26 (6-25); CALCIUM 9.2 mg/dL (8.4-10.2); CARBON DIOXIDE 25 mmol/L (22-29); CHLORIDE 100 mmol/L (98-107); EST GLOMERULAR FILTRATION RATE > 60 ML/MIN (60-); GLUCOSE 102 mg/dL (74-118); POTASSIUM 4.1 mmol/L (3.5-5.1); SODIUM 135 mmol/L (136-145)
[2020-02-28 08:00] VITALS: BP 122/73
[2020-02-28 09:00] VITALS: BP 122/73
[2020-02-28] MEDS: EYE LUBRICANT OPTH OINT 3.5GM TUBE OP SCH (09:00)
[2020-02-28] MEDS: ZINC SULFATE 220 MG CAP PO SCH (09:19)
[2020-02-28] MEDS: APIXABAN 5 MG TABLET PO SCH (09:19)
[2020-02-28] MEDS: ASCORBIC ACID 500 MG TAB PO SCH (09:19)
--- NOTE | 2020-02-28 11:51 | NUR ---
Called and spoke to pt regarding home health. Pt states he would prefer not to have anyone come to his house at this time and is declining home health. States already has rolling walker at home.
[2020-02-28 12:00] VITALS: BP 138/90
--- NOTE | 2020-02-28 12:07 | Progress Note ---
DATE: SUBJECTIVE: Mr. Mckeon is feeling much better today. He is still weak. He is using a walker, but he is feeling better. He is not hypoxemic. Answered all his questions. PHYSICAL EXAMINATION: GENERAL: He is currently alert, oriented, does not seem acute distress. VITAL SIGNS: Stable, currently afebrile. HEENT: He is not icteric. NECK: Supple. CHEST: Clear. HEART: S1, S2. ABDOMEN: Soft. IMPRESSION AND PLAN: 1. Coronavirus disease-19. 2. Status post respiratory failure. The patient to be discharged home with a walker. Supportive care. Home quarantine for 2 weeks, to call me in 2 weeks. MD CINDY Johnston/ARNAV /[id number]
--- NOTE | 2020-02-28 14:18 | Progress Note ---
DATE: SUBJECTIVE: The patient is now on room air. He is walking with the walker and assistance with physical therapy. He is afebrile. PHYSICAL EXAMINATION: VITAL SIGNS: Stable. The blood pressure is 138/90 and pulse is 97. Respiratory rate is 22. HEENT: Shows no facial swelling or erythema. CARDIAC: Reveals regular rate and rhythm with normal S1 and S2. LUNGS: Auscultation of lungs reveals decreased breath sounds at the bases. There is no wheezing. ABDOMEN: Soft and nontender. There is no rebound or guarding. EXTREMITIES: Shows no leg edema or calf tenderness. NEUROLOGICAL: Shows diffuse weakness, but no focal abnormalities. LABORATORY DATA: White blood cell count is 15.6 and the hemoglobin is 12. The platelet count is 581. The BUN to creatinine ratio is normal. Other electrolytes are within normal limits. IMPRESSION: 1. Acute respiratory failure. 2. Viral pneumonia and COVID-19 infection. 3. Myopathy of critical illness. PLAN: 1. Continue physical therapy. 2. Arrange for discharge home. 3. Albuterol inhaler as needed at home. Andi Ventura MD LM/YULIYAL /[id number]
--- NOTE | 2020-02-28 16:16 | NUR ---
patient discharged. PICC line removed- tip intact. patient given prescriptions, resource information and discharge instructions. pt aware of follow up needed. pt wheeled off unit with all belongings to friend's personal vehicle.
== END 2020-02-28 16:18 | disposition home or self-care (01) | DRG 870 ==
LOC: ER 04:20 → ERHOLD 06:56 → IMCU 12:42 → ICU 02-16 13:57 → IMCU 02-25 20:30
PROVIDERS: ADMIT Internal Medicine; ATTEND Internal Medicine
PROC: 5A1955Z Respiratory Ventilation, Greater than 96 Consecutive Hours (ICD-10-PCS; principal; 2020-02-16)
PROC: 0BH18EZ Insertion of Endotracheal Airway into Trachea, Via Natural or Artificial Opening Endoscopic (ICD-10-PCS; 2020-02-16)
PROC: 02HV33Z Insertion of Infusion Device into Superior Vena Cava, Percutaneous Approach (ICD-10-PCS; 2020-02-16)
PROC: B548ZZA Ultrasonography of Superior Vena Cava, Guidance (ICD-10-PCS; 2020-02-16)
DX: A41.89 Other specified sepsis (principal); U07.1 COVID-19; J12.89 Other viral pneumonia; J15.9 Unspecified bacterial pneumonia; J96.01 Acute respiratory failure with hypoxia; E87.1 Hypo-osmolality and hyponatremia; G72.81 Critical illness myopathy; R65.20 Severe sepsis without septic shock; E66.9 Obesity, unspecified; Z68.34 Body mass index [BMI] 34.0-34.9, adult; R73.9 Hyperglycemia, unspecified; G47.33 Obstructive sleep apnea (adult) (pediatric); D64.9 Anemia, unspecified; E88.09 Other disorders of plasma-protein metabolism, not elsewhere classified; D72.829 Elevated white blood cell count, unspecified; T38.0X5A Adverse effect of glucocorticoids and synthetic analogues, initial encounter; Y92.230 Patient room in hospital as the place of occurrence of the external cause
CPT/HCPCS: 31500; 36415; 36569; 36600; 71045; 71260; 74018; 80048; 80053; 80061; 80076; 81001; 82550; 82553; 82728; 82805; 82948; 83036; 83605; 83735; 84100; 84145; 84484; 85007; 85025; 85027; 85379; 85610; 85730; 86140; 87040; 87070; 87205; 87635; 93005; 93306; 94002; 94003; 97139; 99284; J0330; J0456; J0696; J1100; J1650; J2020; J2185; J2250; J2765; J3370; J3410; J7030; J7050; P9047; Q9967